=== PATIENT | male | born 1965 | race Caucasian/White ===

== ENCOUNTER 2017-06-21 09:39 | Inpatient (IN) | payer OTHER ==
[2017-06-21 10:36] VITALS: RESP 20
[2017-06-21] MEDS ORDERED: Multivitamin (MVI) 10 ML, Thiamine 100 MG, Folic Acid 1 MG in Sodium Chloride 0.9% 1,00... IV ONE (11:05)
[2017-06-21] MEDS ORDERED: Sodium Chloride 0.9% 1,000 ML ONE (11:16)
--- NOTE | 2017-06-21 11:17 | C.PDOC ---
History Of Present Illness 51 y/o male with hx of ETOH abuse presents to ED with symptoms of ETOH withdrawal. Patient reports body aches, vomiting and extremity stiffness which he states are typical symptoms of him having ETOH withdrawal. Patient states he completed a detox program 5 years ago and was sober for over 1 yr. Patient is interested in detox program and denies fever, sob, diarrhea or any other complaints at this time. Time Seen by Provider: 06/21/17 10:48 Chief Complaint (Nursing): Substance Abuse History Per: Patient History/Exam Limitations: no limitations Onset/Duration Of Symptoms: Days Current Symptoms Are (Timing): Still Present Suicide/Self Injury Attempted (Context): None Modifying Factor(s): Alcohol Past Medical History Reviewed: Historical Data, Nursing Documentation, Vital Signs Vital Signs: Last Vital Signs Temp 98.7 F 06/21/17 10:32 Pulse 96 H 06/21/17 10:32 Resp 20 06/21/17 10:32 BP 132/88 06/21/17 10:32 Pulse Ox 98 06/21/17 11:43 Family History: States: Unknown Family Hx - Social History Hx Alcohol Use: Yes Hx Substance Use: No - Immunization History Hx Tetanus Toxoid Vaccination: No Hx Influenza Vaccination: No Hx Pneumococcal Vaccination: No Review Of Systems Except As Marked, All Systems Reviewed And Found Negative. Constitutional: Negative for: Fever Gastrointestinal: Positive for: Vomiting. Negative for: Diarrhea Psych: Positive for: Withdrawal Physical Exam - Physical Exam Additional Physical Exam Comments: Constitutional: No acute distress. Tremulous Head: Normocephalic. Atraumatic. Eyes: PERRL. ENT: Moist mucous membranes. Neck: Supple. Cardiovascular: Borderline Tachycardic, Radial pulse 2+ bilaterally. Chest: No tenderness. Respiratory: Clear to auscultation bilaterally. GI: Soft. Nontender. Nondistended. Back: No CVA tenderness. Musculoskeletal: No tenderness or swelling of extremities. Skin: No rash. Neurologic: Alert, no focal deficit. ED Course And Treatment - Laboratory Results Result Diagrams: 06/21/17 11:13 06/21/17 11:13 O2 Sat by Pulse Oximetry: 98 (RA) Pulse Ox Interpretation: Normal - Radiology CXR: Interpreted by Me, Viewed By Me, Read By Radiologist CXR Interpretation: Yes: No Acute Disease Medical Decision Making Medical Decision Making: HISTORY: alcohol withdrawal COMPARISON: Chest x-ray -part of a obstructive series dated 07/18/2016 FINDINGS: LUNGS: No active pulmonary disease. Lung volumes low-normal PLEURA: No significant pleural effusion identified, no pneumothorax apparent. CARDIOVASCULAR: Normal. Pulmonary vasculature top-normal -shallow lung volumes likely contributory OSSEOUS STRUCTURES: No significant abnormalities. VISUALIZED UPPER ABDOMEN: Normal. OTHER FINDINGS: None. IMPRESSION: No active disease. Patient improved after benzos but continues to have tremor. Will benefit from further inpatient management of alcohol withdrawal and will consult Detox. Dr. Griffith accepts patient to his service. Disposition Discussed With : Kendra Griffith Doctor Will See Patient In The: Hospital - Disposition Disposition: HOSPITALIZED Disposition Time: 11:42 Condition: FAIR Forms: [facility] (Uzbek) - Clinical Impression Clinical Impression: Alcohol dependence, Alcohol withdrawal - Scribe Statement The provider has reviewed the documentation as recorded by the Michaelibanshu Lozano All medical record entries made by the Michaelibanshu were at my direction and personally dictated by me. I have reviewed the chart and agree that the record accurately reflects my personal performance of the history, physical exam, medical decision making, and the department course for this patient. I have also personally directed, reviewed, and agree with the discharge instructions and disposition.
[2017-06-21 11:27] LABS: BASO # 0.1 K/uL (0.0-0.2); BASO % 1.5 % (0.0-2.0); EOS # 0.4 K/uL (0.0-0.7); EOS % 7.7 % (0.0-4.0); HEMATOCRIT 42.7 % (35.0-51.0); LYMPH # 0.9 K/uL (1.0-4.3); LYMPH % 16.9 % (20.0-40.0); MEAN CELL VOLUME 92.5 fL (80.0-94.0); MEAN CORPUSCULAR HEMOGLOBIN 31.3 pg (27.0-31.0); MEAN CORPUSCULAR HGB CONC 33.8 g/dL (33.0-37.0); MEAN PLATELET VOLUME 8.9 fL (7.2-11.7); MONO # 0.6 K/uL (0.0-0.8); MONO % 11.4 % (0.0-10.0); NRBC % 0.1 % (0.0-2.0); RED CELL DISTRIBUTION WIDTH 13.7 % (11.5-14.5); WHITE BLOOD COUNT 5.3 K/uL (4.8-10.8)
--- NOTE | 2017-06-21 11:27 | RAD ---
HISTORY: alcohol withdrawal COMPARISON: Chest x-ray -part of a obstructive series dated 07/18/2016 FINDINGS: LUNGS: No active pulmonary disease. Lung volumes low-normal PLEURA: No significant pleural effusion identified, no pneumothorax apparent. CARDIOVASCULAR: Normal. Pulmonary vasculature top-normal -shallow lung volumes likely contributory OSSEOUS STRUCTURES: No significant abnormalities. VISUALIZED UPPER ABDOMEN: Normal. OTHER FINDINGS: None. IMPRESSION: No active disease.
[2017-06-21 11:33] LABS: CHLORIDE 95 mmol/L (98-107); POTASSIUM 3.9 mmol/L (3.6-5.2); SODIUM 136 mmol/L (132-148)
[2017-06-21 11:35] LABS: ALB/GLOB RATIO 1.2 (1.0-2.1); AST/SGOT 278 U/L (17-59); BILIRUBIN,TOTAL 3.4 mg/dL (0.2-1.3); CARBON DIOXIDE 25 mmol/L (22-30); GFR AFRICAN-AMERICAN > 60; TOTAL PROTEIN 8.2 g/dL (6.3-8.3)
[2017-06-21 11:36] LABS: ALKALINE PHOSPHATASE 82 U/L (38-126); ALT/SGPT 165 U/L (21-72); BLOOD UREA NITROGEN 9 mg/dL (9-20); CALCIUM 9.8 mg/dl (8.6-10.4); GLUCOSE,RANDOM 89 mg/dL (75-110)
[2017-06-21 11:37] LABS: ALCOHOL SERUM 41 mg/dl (0-10)
--- NOTE | 2017-06-21 16:39 | CP.PCM.HP ---
Past Patient History - Past Social History Smoking Status: CHEWS TOBA - GASTROINTESTINAL Hx Gastroesophageal Reflux: Yes - PSYCHIATRIC Hx Substance Use: No - SURGICAL HISTORY Hx Surgeries: Yes Hx Orthopedic Surgery: Yes (LEFT KNEE FX/SX W/HARDWARE) Meds Allergies/Adverse Reactions: Allergies Allergy/AdvReac Type Severity Reaction Status Date / Time No Known Allergies Allergy Verified 06/21/17 10:37 Physical Exam - Constitutional Appears: Well - Head Exam Head Exam: ATRAUMATIC, NORMAL INSPECTION, NORMOCEPHALIC - Eye Exam Eye Exam: EOMI, Normal appearance, PERRL Pupil Exam: NORMAL ACCOMODATION, PERRL - ENT Exam ENT Exam: Mucous Membranes Moist, Normal Exam - Neck Exam Neck exam: Positive for: Normal Inspection - Respiratory Exam Respiratory Exam: Decreased Breath Sounds - Cardiovascular Exam Cardiovascular Exam: REGULAR RHYTHM, +S1, +S2 - GI/Abdominal Exam GI & Abdominal Exam: Diminished Bowel Sounds, Soft - Rectal Exam Rectal Exam: Deferred Results - Vital Signs Recent Vital Signs: Last Vital Signs Temp 97.9 F 06/21/17 15:12 Pulse 115 H 06/21/17 15:12 Resp 20 06/21/17 15:12 BP 136/79 06/21/17 15:12 Pulse Ox 98 06/21/17 15:12 - Labs Result Diagrams: 06/21/17 11:13 06/21/17 11:13
[2017-06-21] MEDS ORDERED: Enoxaparin 150 mg Syringe SC ONE (16:54)
[2017-06-21] MEDS ORDERED: Enoxaparin 40 mg Syringe ONE (17:27)
[2017-06-21] MEDS: Dextrose 5%/0.45% NS 1,000 ML IV SCH (19:02)
--- NOTE | 2017-06-21 23:16 | CP.PCM.CON ---
History of Present Illness - History of Present Illness History of Present Illness: consultation for Etoh cardiomyopathy, tachycardia HPI : Mr. Mariscal is a 51-year-old male with past medical history significant for alcohol abuse. According to the patient and he has been drinking a liter of vodka for the last 35 years. He required quitting about 5-6 months ago but every time he attempted he would go into alcohol withdrawal. He attempted to quit a few weeks ago and for the last 2 months he has noticed that every time he would try to quit he would start losing his appetite he has no significant weight in the last 2 months secondary to decrease in appetite. He also has difficulty with his sleep hygiene. He therefore wanted to be admitted to the hospital for alcohol detoxification. He does have at baseline severe shortness of breath with minimal activity. He has not been worked up for his cardiomyopathy. On presentation he was tachycardic. 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 Initially drinking was only on the weekend but subsequently started drinking on a daily basis until he became a heavy alcoholic.He is trying to seek medical help to get rid of his alcohol dependence. He also would like to be evaluated for his dyspnea on exertion and easy fatigability. Review of Systems - Review of Systems All systems: reviewed and no additional remarkable complaints except - Constitutional Constitutional: As Per HPI, Fatigue, Lethargy, Malaise, Weakness - EENT Eyes: As Per HPI Ears: As Per HPI Nose/Mouth/Throat: As Per HPI - Cardiovascular Cardiovascular: As Per HPI, Dyspnea on Exertion, Lightheadedness - Respiratory Respiratory: As Per HPI. absent: Cough, Dyspnea, Hemoptysis, Dyspnea on Exertion, Wheezing, Snoring, Stridor, Pain on Inspiration, Chest Congestion, Excessive Mucous Production, Change in Mucous Color, Pain with Coughing, Other - Gastrointestinal Gastrointestinal: As Per HPI, Early Satiety, Heartburn, Nausea - Genitourinary Genitourinary: As Per HPI - Reproductive: Male Reproductive:Male: As Per HPI - Musculoskeletal Musculoskeletal: As Per HPI - Integumentary Integumentary: As Per HPI. absent: Acne, Alopecia, Bleeding Lesions, Change in Hair, Change in Nails, Change in Pigmentation, Changing Lesions, Dry Skin, Erythema, Furuncle, Hirsutism, Lesions, New Lesions, Non-Healing Lesions, Photosensitivity, Pruritus, Rash, Skin Pain, Skin Ulcer, Sores, Striae, Swelling , Unusual Bruising, Wounds, Jaundice, Other - Neurological Neurological: As Per HPI. absent: Abnormal Gait, Abnormal Hearing, Abnormal Movements, Abnormal Speech, Behavioral Changes, Burning Sensations, Confusion, Convulsions, Disequilibrium, Dizziness, Numbness, Focal Weakness, Frequent Falls , Headaches, Lack of Coordination, Loss of Vision, Memory Loss, Paresthesias, Radicular Pain, Restless Legs, Sensory Deficit, Syncope, Tingling, Tremor, Vertigo, Weakness, Other Visual Disturbances, Other - Psychiatric Psychiatric: As Per HPI, Abnormal Sleep Pattern, Hopelessness. absent: Anhedonia, Anxiety, Auditory Hallucinations, Behavioral Changes, Change in Appetite, Change in Libido, Confusion, Depression, Difficulty Concentrating, Hallucinations, Homicidal Ideation, Irritability, Memory Loss, Mood Swings, Panic Attacks, Paranoia, Suicidal Ideation, Visual Hallucinations, Tactile Hallucinations, Other - Endocrine Endocrine: As Per HPI. absent: Change in Body Appearance, Change in Libido, Cold Intolorance, Deepening of Voice, Excessive Sweating, Fatigue, Flushing, Heat Intolorance, Increase in Ring/Shoe/Hat Size, Palpitations, Polydipsia, Polyphagia, Polyuria, Other - Hematologic/Lymphatic Hematologic: As Per HPI Past Patient History - Past Medical History & Family History Pertinent Family History: +ve for HTN - Past Social History Smoking Status: CHEWS TOBA - GASTROINTESTINAL Hx Gastroesophageal Reflux: Yes - PSYCHIATRIC Hx Substance Use: No - SURGICAL HISTORY Hx Surgeries: Yes Hx Orthopedic Surgery: Yes (LEFT KNEE FX/SX W/HARDWARE) Meds Allergies/Adverse Reactions: Allergies Allergy/AdvReac Type Severity Reaction Status Date / Time No Known Allergies Allergy Verified 06/21/17 10:37 - Medications Medications: Current Medications Chlordiazepoxide (Librium) 25 mg PO QID [facility] Last Admin: 06/21/17 20:17 Dose: 25 mg Enoxaparin Sodium (Lovenox) 40 mg SC DAILY [facility] Dextrose/Sodium Chloride (Dextrose 5%/0.45% Ns 1000 Ml) 1,000 mls @ 75 mls/hr IV .[id number] [facility] Last Admin: 06/21/17 19:02 Dose: Not Given Multivitamins/Vitamin C (Multi-Delyn Liquid) 5 ml PO DAILY [facility] Pantoprazole Sodium (Protonix Ec Tab) 40 mg PO DAILY [facility] Thiamine HCl (Vitamin B1 Tab) 100 mg PO DAILY [facility] Physical Exam - Constitutional Appears: Well - Head Exam Head Exam: ATRAUMATIC, NORMAL INSPECTION, NORMOCEPHALIC - Eye Exam Eye Exam: EOMI, Normal appearance, PERRL Pupil Exam: NORMAL ACCOMODATION, PERRL - ENT Exam ENT Exam: Mucous Membranes Moist, Normal Exam - Neck Exam Neck exam: Positive for: Normal Inspection - Respiratory Exam Respiratory Exam: Clear to Auscultation Bilateral, NORMAL BREATHING PATTERN - Cardiovascular Exam Cardiovascular Exam: Tachycardia, REGULAR RHYTHM, RRR, +S1, +S2, Systolic Murmur - GI/Abdominal Exam GI & Abdominal Exam: Normal Bowel Sounds, Soft. absent: Tenderness - Extremities Exam Extremities exam: Positive for: normal inspection - Back Exam Back exam: NORMAL INSPECTION - Neurological Exam Neurological exam: Alert, CN II-XII Intact, Normal Gait, Oriented x3, Reflexes Normal - Psychiatric Exam Psychiatric exam: Normal Affect, Normal Mood - Skin Skin Exam: Dry, Intact, Normal Color, Warm Results - Vital Signs Recent Vital Signs: Last Vital Signs Temp 98.6 F 06/21/17 21:00 Pulse 96 H 06/21/17 21:00 Resp 20 06/21/17 21:00 BP 137/94 H 06/21/17 21:00 Pulse Ox 97 06/21/17 21:00 - Labs Result Diagrams: 06/21/17 11:13 06/21/17 11:13 Labs: Laboratory Results - last 24 hr 06/21/17 17:26 Total Creatine Kinase 196 H CK-MB (Mass) 1.87 Troponin I, Quant < 0.0120 Assessment & Plan (1) Tachycardia Assessment and Plan: Secondary to hyperadrenergic state from alcohol withdrawal Treat per [facility] protocol with sedatives and IV hydration Status: Acute (2) Cardiomyopathy Assessment and Plan: check echo BNP Status: Acute (3) Alcohol dependence Status: Acute (4) Alcohol withdrawal Status: Acute
[2017-06-22] MEDS: Dextrose 5%/0.45% NS 1,000 ML IV SCH ×2 (00:54→06:50)
[2017-06-22 07:10] VITALS: BP 114/83; PULSE 79; TEMP 98.6; O2SAT 97
[2017-06-22] MEDS ORDERED: Multiple Vitamins Oral Solution PO SCH (10:00)
[2017-06-22] MEDS ORDERED: Enoxaparin 40 mg Syringe SC SCH (10:00)
[2017-06-22] MEDS ORDERED: Home Med 1 UNIT (Omeprazole [Omeprazole] 40 MG) PO SCH (10:00)
[2017-06-22] MEDS ORDERED: Pantoprazole 40 mg EC Tab PO SCH (10:00)
== END 2017-06-22 15:30 | disposition left against medical advice (07) | DRG 749 ==
LOC: C.ER 09:39 → C.9E 12:53 → C.5T 19:48
PROVIDERS: ADMIT Internal Medicine Nephrology; ATTEND Internal Medicine Nephrology
DX: F10.230 Alcohol dependence with withdrawal, uncomplicated (principal); I42.6 Alcoholic cardiomyopathy; R00.0 Tachycardia, unspecified; K21.9 Gastro-esophageal reflux disease without esophagitis; F17.220 Nicotine dependence, chewing tobacco, uncomplicated

== ENCOUNTER 2017-07-09 18:51 | Emergency (ER) | payer OTHER ==
[2017-07-09 18:59] VITALS: BMI 23.4
[2017-07-09 19:02] VITALS: RESP 18; TEMP 98.2
[2017-07-09] MEDS ORDERED: Naproxen 550 mg Tab PO STA (19:27)
[2017-07-09] MEDS ORDERED: Naproxen 550 mg Tab PO ONE (19:38)
[2017-07-09 19:57] VITALS: BP 131/93; PULSE 92; O2SAT 96
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
--- NOTE | 2017-07-10 08:20 | RAD ---
PROCEDURE: Radiographs of the chest and bilateral ribs HISTORY: B/L ANTERIOR RIB PAIN COMPARISON: Frontal chest radiograph 06/21/2017. TECHNIQUE: Frontal radiograph of the chest and multiple oblique radiographs of the bilateral ribs were obtained. FINDINGS: RIGHT RIBS: No fracture or focal lesion visualized. LEFT RIBS: No fracture or focal lesion visualized. LUNGS: No acute infiltrate identified bilaterally. Inspiratory volume appears improved in the interval in fact. PLEURA: No pneumothorax or pleural fluid. CARDIOVASCULAR: Normal sized heart. No pulmonary vascular congestion. OTHER FINDINGS: None. IMPRESSION: Unremarkable radiographs of the chest and bilateral ribs. No rib fracture.
--- NOTE | 2017-07-14 18:36 | CARD ---
APPROVED REPORT EKG Measurement Heart [id number] <Conclusion> Normal sinus rhythm Left axis deviation Abnormal ECG
== END 2017-07-09 20:25 | disposition home or self-care (01) ==
LOC: C.ER 18:51
DX: S20.212A Contusion of left front wall of thorax, initial encounter (principal); S20.211A Contusion of right front wall of thorax, initial encounter; W22.8XXA Striking against or struck by other objects, initial encounter

== ENCOUNTER 2018-03-02 15:58 | Inpatient (IN) | payer OTHER ==
[2018-03-02 15:58] VITALS: BMI 23.4
[2018-03-02] MEDS ORDERED: Sodium Chloride 0.9% 1,000 ML IV STA (16:45)
[2018-03-02] MEDS ORDERED: Sodium Chloride 0.9% 1,000 ML ONE (16:55)
[2018-03-02 17:02] LABS: BASO # 0.1 K/uL (0.0-0.2); HEMOGLOBIN 14.4 g/dL (12.0-18.0); MEAN PLATELET VOLUME 8.1 fL (7.2-11.7)
[2018-03-02 17:15] LABS: EOS # 0.1 K/uL (0.0-0.7); EOS % 3.1 % (0.0-4.0); LYMPH # 0.8 K/uL (1.0-4.3); LYMPH % 17.2 % (20.0-40.0); MEAN CELL VOLUME 92.8 fL (80.0-94.0); MEAN CORPUSCULAR HEMOGLOBIN 32.2 pg (27.0-31.0); MEAN CORPUSCULAR HGB CONC 34.7 g/dL (33.0-37.0); MONO # 0.5 K/uL (0.0-0.8); MONO % 9.7 % (0.0-10.0); NEUT # 3.3 K/uL (1.8-7.0); RBC 4.47 Mil/uL (4.40-5.90); WHITE BLOOD COUNT 4.9 K/uL (4.8-10.8)
[2018-03-02 17:22] LABS: PROTHROMBIN TIME 11.4 SECONDS (9.7-12.2)
[2018-03-02 17:51] LABS: ALB/GLOB RATIO 1.2 (1.0-2.1); ALBUMIN 4.6 g/dL (3.5-5.0); ALT/SGPT 154 U/L (21-72); AST/SGOT 276 U/L (17-59); BLOOD UREA NITROGEN 12 mg/dL (9-20); CALCIUM 8.9 mg/dl (8.6-10.4); GFR AFRICAN-AMERICAN > 60; GFR NON-AFRICAN AMERICAN > 60; LIPASE 334 U/L (23-300)
[2018-03-02] MEDS ORDERED: Magnesium Sulfate 1 gm in D5W 1 GM/100 ML BAG IVPB STA (17:57)
[2018-03-02] MEDS ORDERED: Multivitamin (MVI) 10 ML, Thiamine 100 MG, Folic Acid 1 MG in Sodium Chloride 0.9% 1,00... IV ONE (18:00)
--- NOTE | 2018-03-02 18:03 | C.PDOC ---
Time Seen by Provider: 03/02/18 16:24 Chief Complaint (Nursing): Substance Abuse Past Medical History Vital Signs: Last Vital Signs Temp 98.6 F 03/02/18 16:08 Pulse 99 H 03/02/18 16:56 Resp 22 03/02/18 16:56 BP 127/86 03/02/18 16:56 Pulse Ox 96 03/02/18 16:56 Family History: States: Unknown Family Hx - Social History Hx Alcohol Use: Yes Hx Substance Use: No - Immunization History Hx Tetanus Toxoid Vaccination: No Hx Influenza Vaccination: No Hx Pneumococcal Vaccination: No ED Course And Treatment - Laboratory Results Result Diagrams: 03/02/18 16:55 03/02/18 16:55 O2 Sat by Pulse Oximetry: 96 Disposition - Disposition
--- NOTE | 2018-03-02 18:07 | C.PDOC ---
History Of Present Illness Pt is an alcoholic, but has not been able to drink any alcohol for the past two days due to vomiting. He started having "shakes" and feeling ill. Time Seen by Provider: 03/02/18 16:24 Chief Complaint (Nursing): Abdominal Pain History Per: Patient, Family Onset/Duration Of Symptoms: Days (few days) Current Symptoms Are (Timing): Still Present Context: Other (Pt is alcoholic. Last alcohol intake was 2 days ago.) Severity: Moderate Location Of Pain/Discomfort: Epigastric Quality Of Discomfort: "Pain" Associated Symptoms: Nausea, Vomiting Exacerbating Factors: Food Alleviating Factors: None Additional History Per: Prior Records Past Medical History Reviewed: Historical Data, Nursing Documentation, Vital Signs Vital Signs: Last Vital Signs Temp 98.6 F 03/02/18 16:08 Pulse 99 H 03/02/18 16:56 Resp 22 03/02/18 16:56 BP 127/86 03/02/18 16:56 Pulse Ox 96 03/02/18 16:56 - Medical History Other PMH: Alcohol abuse Surgical History: No Surg Hx Family History: States: Unknown Family Hx - Social History Hx Alcohol Use: Yes Hx Substance Use: No - Immunization History Hx Tetanus Toxoid Vaccination: No Hx Influenza Vaccination: No Hx Pneumococcal Vaccination: No Review Of Systems Except As Marked, All Systems Reviewed And Found Negative. Constitutional: Negative for: Fever Cardiovascular: Negative for: Chest Pain Respiratory: Negative for: Shortness of Breath Gastrointestinal: Positive for: Nausea, Vomiting, Abdominal Pain, Hematemesis (? ). Negative for: Diarrhea Musculoskeletal: Negative for: Neck Pain Skin: Negative for: Rash Neurological: Positive for: Other (Tremors). Negative for: Seizures Psych: Negative for: Psychosis Physical Exam - Physical Exam Appears: In Acute Distress, Other (Pt is tremulous) Skin: Normal Color, Warm, Dry Head: Atraumatic, Normacephalic Eye(s): bilateral: PERRL, EOMI Tongue: Other (Tongue fasiculations) Neck: Normal ROM, Supple Cardiovascular: Rhythm Regular (tachycardia) Respiratory: Normal Breath Sounds, No Accessory Muscle Use Gastrointestinal/Abdominal: Soft, Tenderness (mild epigastric) Extremity: Normal ROM Neurological/Psych: Oriented x3, Normal Motor, Normal Sensation, Other ( Tremulous) ED Course And Treatment - Laboratory Results Result Diagrams: 03/02/18 16:55 03/02/18 16:55 Interpretation Of Abnormal: Hypomagnesemia. Mildly elevated Lipase. ECG: Interpreted By Me, Viewed By Me ECG Rhythm: Sinus Rhythm, Nonspecific Changes Rate From EC O2 Sat by Pulse Oximetry: 96 Pulse Ox Interpretation: Normal Progress - Interventions Interventions:: Observation, Intravenous fluid - Medications Administered Intravenous: Antiemetic, Other (Ativan. PPI.) - Data Reviewed Data Reviewed: Lab, EKG, Old records - Patient Status Patient status: Partially improved - Critical Care Citical Care: Excluding Proc Time Critical Care Time: 60 minutes - Continuity of Care Discussed patient case with:: Patient, Family-HIPPA compliant, ED Nurse, Covering for PMD - Patient Plan Patient Plan: Admission, Telemetry Disposition Discussed With : Emily Cherry Comment: She accepted pt on hospitalist service. Doctor Will See Patient In The: Hospital Counseled Patient/Family Regarding: Studies Performed, Diagnosis - Disposition Disposition: HOSPITALIZED Disposition Time: 18:09 Condition: GUARDED - Clinical Impression Clinical Impression: Alcohol withdrawal, Abdominal pain, Nausea & vomiting
[2018-03-02] MEDS ORDERED: Magnesium Sulfate 1 gm in D5W 1 GM/100 ML BAG IVPB ONE (18:22)
--- NOTE | 2018-03-02 19:17 | CP.PCM.HP ---
<AnnikaRach L. - Last Filed: 03/02/18 19:46> History of Present Illness - History of Present Illness History of Present Illness: CC: nausea/ vomiting, alcohol withdrawal Patient is a 52 year old male with pmhx of alcohol abuse who presents today to the ED for nausea and vomiting and alcohol withdrawal. Patient says the nausea and vomiting started about 4 days ago and he has been vomiting about 2 times per day. He also admits that he has seen some small streaks of dark red blood in the vomit three times which he has never seen before. Patient has associated generalized abdominal pain which he rates 5/10. Patient drinks 750ml of vodka per day for the past 3 years (has been drinking for 40 years but not as heavily in the past). Because of his nausea and vomiting patient has not been able to drink alcohol for the past 48 hours and has started feeling very shaky. Patient has not taken any medication for his symptoms. Patient has been hospitalized in the past for alcohol withdrawal and denies ever having a seizure from withdrawal. Patient admits to not having a bowel movement in 4 days. Patient denies any falls. Patient denies any dark stools or blood in his stool. Patient denies any shortness of breath or chest pain. PMD: Dr. Coleman PMHx: alcohol abuse Psur years ago hardware placed in right leg due to an accident Famhx: denies Social: no cigarettes, chews 5 packets of tobacco per day for 40 years, drinks 750ml of vodka daily for 3 years with previous hx of less heavy drinking for 40 years. lives with and son, works at [employer] two days per week longest period of sobriety was 3 months 3 years ago after being in a rehab in [facility] Meds: none Present on Admission - Present on Admission Any Indicators Present on Admission: No History of DVT/PE: No History of Uncontrolled Diabetes: No Urinary Catheter: No Decubitus Ulcer Present: No Review of Systems - Constitutional Constitutional: absent: Chills, Fever - EENT Eyes: absent: Blurred Vision, Change in Vision Nose/Mouth/Throat: absent: Sore Throat - Cardiovascular Cardiovascular: absent: Chest Pain, Dyspnea, Irregular Heart Rhythm, Leg Edema, Palpitations - Respiratory Respiratory: absent: Wheezing, Chest Congestion - Gastrointestinal Gastrointestinal: Abdominal Pain, Constipation, Hematemesis, Nausea, Vomiting. absent: Coffee Ground Emesis, Diarrhea, Hematochezia, Melena - Musculoskeletal Musculoskeletal: absent: Numbness, Tingling - Integumentary Integumentary: absent: Rash - Psychiatric Psychiatric: Anxiety Past Patient History - Past Medical History & Family History Past Medical History?: No - Past Social History Smoking Status: Never Smoked - MUSCULOSKELETAL/RHEUMATOLOGICAL Hx Falls: Yes - GASTROINTESTINAL Hx Gastroesophageal Reflux: Yes - PSYCHIATRIC Hx Substance Use: No - SURGICAL HISTORY Hx Surgeries: Yes Hx Orthopedic Surgery: Yes (LEFT KNEE FX/SX W/HARDWARE) - ANESTHESIA Hx Anesthesia: Yes Hx Anesthesia Reactions: No Hx Malignant Hyperthermia: No Meds Allergies/Adverse Reactions: Allergies Allergy/AdvReac Type Severity Reaction Status Date / Time No Known Allergies Allergy Verified 07/09/17 18:58 Physical Exam - Constitutional Appears: Non-toxic, No Acute Distress, Older Than Stated Age - Head Exam Head Exam: ATRAUMATIC, NORMAL INSPECTION, NORMOCEPHALIC - Eye Exam Eye Exam: EOMI, Scleral icterus Pupil Exam: NORMAL ACCOMODATION, PERRL - ENT Exam ENT Exam: Mucous Membranes Dry - Respiratory Exam Respiratory Exam: Clear to Auscultation Bilateral, NORMAL BREATHING PATTERN. absent: Rales, Rhonchi, Wheezes, Respiratory Distress, Stridor - Cardiovascular Exam Cardiovascular Exam: Tachycardia, REGULAR RHYTHM, +S1, +S2 - GI/Abdominal Exam GI & Abdominal Exam: Normal Bowel Sounds, Organomegaly, Soft, Tenderness - Extremities Exam Extremities exam: Positive for: normal inspection. Negative for: pedal edema, tenderness - Neurological Exam Neurological exam: Alert, Oriented x3 - Psychiatric Exam Psychiatric exam: Anxious, Normal Affect - Skin Skin Exam: Intact, Normal Color, Warm Results - Vital Signs Recent Vital Signs: Last Vital Signs Temp 98.6 F 03/02/18 16:08 Pulse 90 03/02/18 19:00 Resp 20 03/02/18 19:00 BP 112/70 03/02/18 19:00 Pulse Ox 96 03/02/18 19:00 - Labs Result Diagrams: 03/02/18 16:55 03/02/18 16:55 Labs: Laboratory Results - last 24 hr 03/02/18 03/02/18 03/02/18 16:55 16:55 16:55 WBC 4.9 RBC 4.47 Hgb 14.4 Hct 41.5 MCV 92.8 MCH 32.2 H MCHC 34.7 RDW 13.0 Plt Count 98 L D MPV 8.1 Neut % (Auto) 68.0 Lymph % (Auto) 17.2 L Posey % (Auto) 9.7 Eos % (Auto) 3.1 Baso % (Auto) 2.0 Neut # (Auto) 3.3 Lymph # (Auto) 0.8 L Posey # (Auto) 0.5 Eos # (Auto) 0.1 Baso # (Auto) 0.1 Differential Comment PT 11.4 INR 1.0 APTT 33 Sodium 141 Potassium 3.8 Chloride 96 L Carbon Dioxide 26 Anion Gap 23 H BUN 12 Creatinine 0.7 L Est GFR ( Amer) > 60 Est GFR (Non-Af Amer) > 60 Random Glucose 91 Calcium 8.9 Magnesium 1.4 L Total Bilirubin 2.4 H AST 276 H ALT 154 H Alkaline Phosphatase 71 Total Protein 8.5 H Albumin 4.6 Globulin 3.9 Albumin/Globulin Ratio 1.2 Lipase 334 H Alcohol, Quantitative 27 H Assessment & Plan - Assessment and Plan (Free Text) Assessment: Alcohol Abuse/ Alcohol Withdrawal admitted to [facility], seizure/ aspiration/ fall precautions Psych consulted, Dr. Bennett, help appreciated meds: Ativan taper Ativan 1mg ivp q2h prn Banana bag at 100cc/hr Thiamine 100mg po daily Multivitamins 1 tab po daily Folic acid 1 mg po daily Zofran prn for nausea Hematemasis HgB 14.4 on admission, f/u cbc Protonix 40mg ivp q12h GI consult, Dr. Alvarez, help appreciated Transaminitis most likely 2/2 alcohol abuse continue to monitor f/u abdominal ultrasound Hypomagnesemia Mg 1.4 repleted in ED continue to monitor Prophylaxis SCDs, VTE prophylaxis contraindicated GI: Protonix 40mg ivp q12h <Emily Cherry - Last Filed: 03/03/18 17:01> Results - Vital Signs Recent Vital Signs: Last Vital Signs Temp 97.7 F 03/03/18 15:11 Pulse 114 H 03/03/18 15:11 Resp 20 03/03/18 15:11 BP 151/95 H 03/03/18 15:11 Pulse Ox 97 03/03/18 15:11 - Labs Result Diagrams: 03/03/18 04:46 03/03/18 04:46 Labs: Laboratory Results - last 24 hr 03/02/18 03/02/18 03/02/18 16:55 16:55 16:55 WBC 4.9 RBC 4.47 Hgb 14.4 Hct 41.5 MCV 92.8 MCH 32.2 H MCHC 34.7 RDW 13.0 Plt Count 98 L D MPV 8.1 Neut % (Auto) 68.0 Lymph % (Auto) 17.2 L Posey % (Auto) 9.7 Eos % (Auto) 3.1 Baso % (Auto) 2.0 Neut # (Auto) 3.3 Lymph # (Auto) 0.8 L Posey # (Auto) 0.5 Eos # (Auto) 0.1 Baso # (Auto) 0.1 Differential Comment PT 11.4 INR 1.0 APTT 33 Sodium 141 Potassium 3.8 Chloride 96 L Carbon Dioxide 26 Anion Gap 23 H BUN 12 Creatinine 0.7 L Est GFR ( Amer) > 60 Est GFR (Non-Af Amer) > 60 Random Glucose 91 Calcium 8.9 Phosphorus Magnesium 1.4 L Total Bilirubin 2.4 H AST 276 H ALT 154 H Alkaline Phosphatase 71 Total Protein 8.5 H Albumin 4.6 Globulin 3.9 Albumin/Globulin Ratio 1.2 Lipase 334 H Vitamin B12 Folate Urine Color Urine Clarity Urine pH Ur Specific [place] Urine Protein Urine Glucose (UA) Urine Ketones Urine Blood Urine Nitrate Urine Bilirubin Urine Urobilinogen Ur Leukocyte Esterase Urine WBC (Auto) Urine RBC (Auto) Ur Squamous Epith Cells Urine Opiates Screen Urine Methadone Screen Ur Barbiturates Screen Ur Phencyclidine Scrn Ur Amphetamines Screen U Benzodiazepines Scrn U Oth Cocaine Metabols U Cannabinoids Screen Alcohol, Quantitative 27 H 03/02/18 03/02/18 03/02/18 20:11 20:11 21:48 WBC RBC Hgb Hct MCV MCH MCHC RDW Plt Count MPV Neut % (Auto) Lymph % (Auto) Posey % (Auto) Eos % (Auto) Baso % (Auto) Neut # (Auto) Lymph # (Auto) Posey # (Auto) Eos # (Auto) Baso # (Auto) Differential Comment PT INR APTT Sodium Potassium Chloride Carbon Dioxide Anion Gap BUN Creatinine Est GFR ( Amer) Est GFR (Non-Af Amer) Random Glucose Calcium Phosphorus 2.6 Magnesium Total Bilirubin AST ALT Alkaline Phosphatase Total Protein Albumin Globulin Albumin/Globulin Ratio Lipase Vitamin B12 Folate Urine Color Yellow Urine Clarity Clear Urine pH 7.0 Ur Specific [place] 1.017 Urine Protein Negative Urine Glucose (UA) Normal Urine Ketones 1+ H Urine Blood Negative Urine Nitrate Negative Urine Bilirubin Negative Urine Urobilinogen 4.0 Ur Leukocyte Esterase Neg Urine WBC (Auto) 1 Urine RBC (Auto) 1 Ur Squamous Epith Cells < 1 Urine Opiates Screen Negative Urine Methadone Screen Negative Ur Barbiturates Screen Negative Ur Phencyclidine Scrn Negative Ur Amphetamines Screen Negative U Benzodiazepines Scrn Negative U Oth Cocaine Metabols Negative U Cannabinoids Screen Negative Alcohol, Quantitative 03/02/18 03/03/18 03/03/18 21:48 04:46 04:46 WBC 5.0 4.9 RBC 3.98 L 3.95 L Hgb 12.8 12.6 Hct 37.2 36.6 MCV 93.5 92.8 MCH 32.2 H 32.0 H MCHC 34.4 34.4 RDW 12.9 12.7 Plt Count 85 L 73 L MPV 8.0 8.5 Neut % (Auto) 63.1 60.7 Lymph % (Auto) 22.5 21.4 Posey % (Auto) 10.6 H 10.6 H Eos % (Auto) 2.7 5.9 H Baso % (Auto) 1.1 1.4 Neut # (Auto) 3.2 2.9 Lymph # (Auto) 1.1 1.0 Posey # (Auto) 0.5 0.5 Eos # (Auto) 0.1 0.3 Baso # (Auto) 0.1 0.1 Differential Comment PT INR APTT Sodium 138 Potassium 3.4 L Chloride 99 Carbon Dioxide 25 Anion Gap 17 BUN 11 Creatinine 0.7 L Est GFR ( Amer) > 60 Est GFR (Non-Af Amer) > 60 Random Glucose 82 Calcium 8.4 L Phosphorus 2.5 Magnesium 1.8 Total Bilirubin 2.7 H AST 190 H D ALT 108 H D Alkaline Phosphatase 57 Total Protein 7.4 Albumin 3.9 Globulin 3.5 Albumin/Globulin Ratio 1.1 Lipase Vitamin B12 350 Folate > 20.0 Urine Color Urine Clarity Urine pH Ur Specific [place] Urine Protein Urine Glucose (UA) Urine Ketones Urine Blood Urine Nitrate Urine Bilirubin Urine Urobilinogen Ur Leukocyte Esterase Urine WBC (Auto) Urine RBC (Auto) Ur Squamous Epith Cells Urine Opiates Screen Urine Methadone Screen Ur Barbiturates Screen Ur Phencyclidine Scrn Ur Amphetamines Screen U Benzodiazepines Scrn U Oth Cocaine Metabols U Cannabinoids Screen Alcohol, Quantitative Attending/Attestation - Attestation I have personally seen and examined this patient.: Yes I have fully participated in the care of the patient.: Yes I have reviewed all pertinent clinical information: Yes Notes (Text): 52years old alcoholic male came for vomiting and alcohol withdrawal. Noted fresh blood with vomits. Discussed with the resident. 1.Alcohol abuse/alcohol withdrawal 2.Hematemesis and vomting 3.transaminitis 4.Hypomagnesium Plan discussed with the resident.Follow cbc,ativan,banana bag,protonix,us abdomen I agree with the resident's documentation of the assessment and the plan
[2018-03-02 20:26] LABS: SQUAMOUS EPITHIAL < 1 /hpf (0-5); URINE BILIRUBIN NEGATIVE (NEGATIVE); URINE BLOOD NEGATIVE (NEGATIVE); URINE CLARITY Clear (Clear); URINE COLOR Yellow (YELLOW); URINE GLUCOSE (UA) NORMAL (Normal); URINE LEUKOCYTE ESTERASE NEG Leu/uL (Negative); URINE PROTEIN NEGATIVE (NEGATIVE)
[2018-03-02 20:40] LABS: BARBITURATES, UR NEGATIVE (NEGATIVE); BENZODIAZEPINES, UR NEGATIVE (NEGATIVE); OPIATES, UR NEGATIVE (NEGATIVE); PHENCYCLIDINE, UR NEGATIVE (NEGATIVE)
--- NOTE | 2018-03-02 21:40 | US ---
EXAM: US Abdomen Complete EXAM DATE/TIME: Exam ordered 03/02/2018 7:27 PM CLINICAL HISTORY: 52 years old, male; Pain; Abdominal pain; Generalized; Additional info: Alcohol abuse, abdominal pain, n/v TECHNIQUE: Real-time ultrasound of the abdomen (complete) with image documentation. COMPARISON: No relevant prior studies available. FINDINGS: Liver: The liver is generally increased in echotexture. The liver measures 16.2 cm in craniocaudal span. No intrahepatic bile duct dilation. Gallbladder: Unremarkable. No gallstones. Common bile duct: The common bile duct measures 4 mm. No stones. No dilation. Pancreas: Unremarkable as visualized. Kidneys: The right kidney measures 10.8 x 4.7 x 5 cm. The left kidney measures 11.2 x 4.7 x 5 cm. No stones. No hydronephrosis. Spleen: The spleen measures 10.5 cm in craniocaudal span. Aorta: The mid and distal abdominal aorta are not well seen due to bowel gas. Inferior vena cava: Unremarkable. Free fluid: There is normal blood flow direction in the main portal vein. IMPRESSION: 1. Echogenic liver suggesting underlying infiltrative process such as fatty infiltration or fibrosis.
[2018-03-02 21:57] LABS: BASO # 0.1 K/uL (0.0-0.2); BASO % 1.1 % (0.0-2.0); EOS # 0.1 K/uL (0.0-0.7); EOS % 2.7 % (0.0-4.0); HEMOGLOBIN 12.8 g/dL (12.0-18.0); LYMPH # 1.1 K/uL (1.0-4.3); LYMPH % 22.5 % (20.0-40.0); MEAN CELL VOLUME 93.5 fL (80.0-94.0); MEAN CORPUSCULAR HEMOGLOBIN 32.2 pg (27.0-31.0); MEAN CORPUSCULAR HGB CONC 34.4 g/dL (33.0-37.0); MONO # 0.5 K/uL (0.0-0.8); MONO % 10.6 % (0.0-10.0); NEUT # 3.2 K/uL (1.8-7.0); NEUT % 63.1 % (50.0-75.0); NRBC % 0.1 % (0.0-2.0); RBC 3.98 Mil/uL (4.40-5.90); RED CELL DISTRIBUTION WIDTH 12.9 % (11.5-14.5)
[2018-03-03 04:50] LABS: BASO # 0.1 K/uL (0.0-0.2); BASO % 1.4 % (0.0-2.0); EOS # 0.3 K/uL (0.0-0.7); EOS % 5.9 % (0.0-4.0); HEMOGLOBIN 12.6 g/dL (12.0-18.0); LYMPH % 21.4 % (20.0-40.0); MEAN CELL VOLUME 92.8 fL (80.0-94.0); MEAN CORPUSCULAR HGB CONC 34.4 g/dL (33.0-37.0); MEAN PLATELET VOLUME 8.5 fL (7.2-11.7); MONO # 0.5 K/uL (0.0-0.8); MONO % 10.6 % (0.0-10.0); NEUT # 2.9 K/uL (1.8-7.0); NEUT % 60.7 % (50.0-75.0); RBC 3.95 Mil/uL (4.40-5.90); RED CELL DISTRIBUTION WIDTH 12.7 % (11.5-14.5); WHITE BLOOD COUNT 4.9 K/uL (4.8-10.8)
[2018-03-03 05:08] LABS: ALB/GLOB RATIO 1.1 (1.0-2.1); ALBUMIN 3.9 g/dL (3.5-5.0); ALT/SGPT 108 U/L (21-72); AST/SGOT 190 U/L (17-59); BLOOD UREA NITROGEN 11 mg/dL (9-20); CALCIUM 8.4 mg/dl (8.6-10.4); GFR AFRICAN-AMERICAN > 60; GFR NON-AFRICAN AMERICAN > 60
--- NOTE | 2018-03-03 08:00 | CP.PCM.CON ---
<Casper Sky - Last Filed: 03/03/18 10:38> History of Present Illness - History of Present Illness History of Present Illness: PGY5 GI Fellow Consult Note Patient is a 52yo male with PMHx significant for EtOH abuse/dependence who presented to the hospital for abdominal pain, nausea and vomiting. 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 The patient is somewhat disoriented at this time despite translation services and thus history is limited. He states that 5-6 days ago he developed epigastric abdominal pain and loss of appetite. In the days that followed, he became nauseated and vomited multiple times. After several bouts of bilious emesis he began to notice occasional spots of bright red blood. This has since resolved however he had generalized weakness, difficulty walking, dizziness and tremulousness so he came to the ED for evaluation. Despite his symptoms, he continued drinking alcohol (~fifth of Vodka daily) up until 1-2 days prior to admission. He has been drinking for over 40 years with much more heavy intake in the last 3 years. Denies any weight loss, fever, chills. 12 system ROS performed but limited given mentation PMHx: See HPI PSHx: Left leg repair following accident, I&D abdominal wall FHx: Discussed with patient and he denies any significant family history Social: +Tobacco use (chew daily), +EtOH use (fifth of vodka daily), denies illicit drug use Endo: Denies any prior endoscopy or colonoscopy Past Patient History - Past Medical History & Family History Past Medical History?: No - Past Social History Smoking Status: Never Smoked - MUSCULOSKELETAL/RHEUMATOLOGICAL Hx Falls: Yes - GASTROINTESTINAL Hx Gastroesophageal Reflux: Yes - PSYCHIATRIC Hx Substance Use: No - SURGICAL HISTORY Hx Surgeries: Yes Hx Orthopedic Surgery: Yes (LEFT KNEE FX/SX W/HARDWARE) - ANESTHESIA Hx Anesthesia: Yes Hx Anesthesia Reactions: No Hx Malignant Hyperthermia: No Meds Allergies/Adverse Reactions: Allergies Allergy/AdvReac Type Severity Reaction Status Date / Time No Known Allergies Allergy Verified 07/09/17 18:58 - Medications Medications: Current Medications Folic Acid (Folic Acid) 1 mg PO DAILY NADIA Lorazepam (Ativan) 2 mg IVP Q4 NADIA PRN Reason: Taper Stop: 03/07/18 18:14 Last Admin: 03/03/18 04:27 Dose: Not Given Lorazepam (Ativan) 1 mg IVP Q2H PRN PRN Reason: Anxiety Last Admin: 03/03/18 03:10 Dose: 1 mg Multivitamins (Hexavitamin) 1 tab PO DAILY [facility] Ondansetron HCl (Zofran Inj) 4 mg IVP Q6H PRN PRN Reason: Nausea/Vomiting Pantoprazole Sodium (Protonix Inj) 40 mg IVP Q12H NADIA Last Admin: 03/03/18 07:00 Dose: 40 mg Thiamine HCl (Vitamin B1 Tab) 100 mg PO DAILY [facility] Physical Exam - Constitutional Appears: No Acute Distress, Confused - Eye Exam Eye Exam: EOMI, PERRL - ENT Exam ENT Exam: Mucous Membranes Dry - Respiratory Exam Respiratory Exam: Clear to Auscultation Bilateral. absent: Rales, Rhonchi, Wheezes - Cardiovascular Exam Cardiovascular Exam: RRR, +S1, +S2 - GI/Abdominal Exam GI & Abdominal Exam: Normal Bowel Sounds, Soft, Tenderness (epigastric). absent : Distended, Firm, Guarding, Organomegaly, Rigid - Extremities Exam Extremities exam: Positive for: normal inspection. Negative for: pedal edema - Neurological Exam Neurological exam: Altered Additional comments: tremulous - Psychiatric Exam Psychiatric exam: Anxious - Skin Skin Exam: Dry, Warm Results - Vital Signs Recent Vital Signs: Last Vital Signs Temp 97.8 F 03/03/18 06:35 Pulse 70 03/03/18 06:35 Resp 20 03/03/18 06:35 BP 131/88 03/03/18 06:35 Pulse Ox 96 03/03/18 06:35 - Labs Result Diagrams: 03/03/18 04:46 03/03/18 04:46 Labs: Laboratory Results - last 24 hr 03/02/18 03/02/18 03/02/18 16:55 16:55 16:55 WBC 4.9 RBC 4.47 Hgb 14.4 Hct 41.5 MCV 92.8 MCH 32.2 H MCHC 34.7 RDW 13.0 Plt Count 98 L D MPV 8.1 Neut % (Auto) 68.0 Lymph % (Auto) 17.2 L [place] % (Auto) 9.7 Eos % (Auto) 3.1 Baso % (Auto) 2.0 Neut # (Auto) 3.3 Lymph # (Auto) 0.8 L [place] # (Auto) 0.5 Eos # (Auto) 0.1 Baso # (Auto) 0.1 Differential Comment PT 11.4 INR 1.0 APTT 33 Sodium 141 Potassium 3.8 Chloride 96 L Carbon Dioxide 26 Anion Gap 23 H BUN 12 Creatinine 0.7 L Est GFR ( Amer) > 60 Est GFR (Non-Af Amer) > 60 Random Glucose 91 Calcium 8.9 Phosphorus Magnesium 1.4 L Total Bilirubin 2.4 H AST 276 H ALT 154 H Alkaline Phosphatase 71 Total Protein 8.5 H Albumin 4.6 Globulin 3.9 Albumin/Globulin Ratio 1.2 Lipase 334 H Urine Color Urine Clarity Urine pH Ur Specific [place] Urine Protein Urine Glucose (UA) Urine Ketones Urine Blood Urine Nitrate Urine Bilirubin Urine Urobilinogen Ur Leukocyte Esterase Urine WBC (Auto) Urine RBC (Auto) Ur Squamous Epith Cells Urine Opiates Screen Urine Methadone Screen Ur Barbiturates Screen Ur Phencyclidine Scrn Ur Amphetamines Screen U Benzodiazepines Scrn U Oth Cocaine Metabols U Cannabinoids Screen Alcohol, Quantitative 27 H 03/02/18 03/02/18 03/02/18 20:11 20:11 21:48 WBC RBC Hgb Hct MCV MCH MCHC RDW Plt Count MPV Neut % (Auto) Lymph % (Auto) [place] % (Auto) Eos % (Auto) Baso % (Auto) Neut # (Auto) Lymph # (Auto) [place] # (Auto) Eos # (Auto) Baso # (Auto) Differential Comment PT INR APTT Sodium Potassium Chloride Carbon Dioxide Anion Gap BUN Creatinine Est GFR ( Amer) Est GFR (Non-Af Amer) Random Glucose Calcium Phosphorus 2.6 Magnesium Total Bilirubin AST ALT Alkaline Phosphatase Total Protein Albumin Globulin Albumin/Globulin Ratio Lipase Urine Color Yellow Urine Clarity Clear Urine pH 7.0 Ur Specific [place] 1.017 Urine Protein Negative Urine Glucose (UA) Normal Urine Ketones 1+ H Urine Blood Negative Urine Nitrate Negative Urine Bilirubin Negative Urine Urobilinogen 4.0 Ur Leukocyte Esterase Neg Urine WBC (Auto) 1 Urine RBC (Auto) 1 Ur Squamous Epith Cells < 1 Urine Opiates Screen Negative Urine Methadone Screen Negative Ur Barbiturates Screen Negative Ur Phencyclidine Scrn Negative Ur Amphetamines Screen Negative U Benzodiazepines Scrn Negative U Oth Cocaine Metabols Negative U Cannabinoids Screen Negative Alcohol, Quantitative 03/02/18 03/03/18 03/03/18 21:48 04:46 04:46 WBC 5.0 4.9 RBC 3.98 L 3.95 L Hgb 12.8 12.6 Hct 37.2 36.6 MCV 93.5 92.8 MCH 32.2 H 32.0 H MCHC 34.4 34.4 RDW 12.9 12.7 Plt Count 85 L 73 L MPV 8.0 8.5 Neut % (Auto) 63.1 60.7 Lymph % (Auto) 22.5 21.4 Osborne % (Auto) 10.6 H 10.6 H Eos % (Auto) 2.7 5.9 H Baso % (Auto) 1.1 1.4 Neut # (Auto) 3.2 2.9 Lymph # (Auto) 1.1 1.0 [place] # (Auto) 0.5 0.5 Eos # (Auto) 0.1 0.3 Baso # (Auto) 0.1 0.1 Differential Comment PT INR APTT Sodium 138 Potassium 3.4 L Chloride 99 Carbon Dioxide 25 Anion Gap 17 BUN 11 Creatinine 0.7 L Est GFR ( Amer) > 60 Est GFR (Non-Af Amer) > 60 Random Glucose 82 Calcium 8.4 L Phosphorus 2.5 Magnesium 1.8 Total Bilirubin 2.7 H AST 190 H D ALT 108 H D Alkaline Phosphatase 57 Total Protein 7.4 Albumin 3.9 Globulin 3.5 Albumin/Globulin Ratio 1.1 Lipase Urine Color Urine Clarity Urine pH Ur Specific [place] Urine Protein Urine Glucose (UA) Urine Ketones Urine Blood Urine Nitrate Urine Bilirubin Urine Urobilinogen Ur Leukocyte Esterase Urine WBC (Auto) Urine RBC (Auto) Ur Squamous Epith Cells Urine Opiates Screen Urine Methadone Screen Ur Barbiturates Screen Ur Phencyclidine Scrn Ur Amphetamines Screen U Benzodiazepines Scrn U Oth Cocaine Metabols U Cannabinoids Screen Alcohol, Quantitative Assessment & Plan - Assessment and Plan (Free Text) Assessment: Patient is a 52yo male with PMHx significant for EtOH abuse/dependence who presented to the hospital for abdominal pain, nausea and vomiting. -Acute alcohol intoxication and withdrawal -Acute alcoholic hepatitis -Alcohol abuse and dependence -Nausea/vomiting likely a result of above -Thrombocytopenia Plan: -Suspect acute alcoholic hepatitis given recent intake and elevated LFTs -U/S unremarkable for biliary obstructive process -Echogenic liver which can be seen in chronic EtOH intake -MDF <32 thus no indication for corticosteroid therapy -Thrombocytopenia suggestive of portal HTN though no other overt features of cirrhosis -Encourage EtOH cessation -Check B12/folate given gait instability -Consider CT head if symptoms do not resolve with improvement in withdrawal -Diet as tolerated -No plan for endoscopic interventions at this time - Date & Time Date: 03/03/18 Time: 07:10 <Pa Benedict - Last Filed: 03/03/18 19:43> Meds - Medications Medications: Current Medications Diphenhydramine HCl (Benadryl) 50 mg PO Q6 PRN PRN Reason: Extra Pyramidal Symptoms Diphenhydramine HCl (Benadryl) 50 mg IM Q6 PRN PRN Reason: Agitation Folic Acid (Folic Acid) 1 mg PO DAILY [facility] Last Admin: 03/03/18 09:51 Dose: 1 mg Haloperidol (Haldol) 5 mg PO Q8 PRN PRN Reason: Moderate Agitation Haloperidol Lactate (Haldol) 5 mg IM Q6 PRN PRN Reason: Agitation Lorazepam (Ativan) 2 mg IVP Q4 NADIA PRN Reason: Taper Stop: 03/07/18 18:14 Last Admin: 03/03/18 16:56 Dose: Not Given Lorazepam (Ativan) 2 mg IVP Q2H PRN PRN Reason: Anxiety Last Admin: 03/03/18 17:58 Dose: 2 mg Lorazepam (Ativan) 1 mg PO Q6 PRN PRN Reason: Anxiety Lorazepam (Ativan) 1 mg IM Q6H PRN PRN Reason: Anxiety Multivitamins (Hexavitamin) 1 tab PO DAILY [facility] Last Admin: 03/03/18 09:52 Dose: 1 tab Ondansetron HCl (Zofran Inj) 4 mg IVP Q6H PRN PRN Reason: Nausea/Vomiting Pantoprazole Sodium (Protonix Inj) 40 mg IVP Q12H [facility] Last Admin: 03/03/18 07:00 Dose: 40 mg Potassium Chloride (Klor-Con 10) 10 meq PO ONCE ONE Stop: 03/04/18 12:01 Thiamine HCl (Vitamin B1 Tab) 100 mg PO DAILY [facility] Last Admin: 03/03/18 09:52 Dose: 100 mg Results - Vital Signs Recent Vital Signs: Last Vital Signs Temp 98.0 F 03/03/18 18:32 Pulse 102 H 03/03/18 18:11 Resp 20 03/03/18 15:11 BP 99/69 L 03/03/18 18:32 Pulse Ox 97 03/03/18 15:11 - Labs Result Diagrams: 03/03/18 04:46 03/03/18 04:46 Labs: Laboratory Results - last 24 hr 03/02/18 03/02/18 03/02/18 20:11 20:11 21:48 WBC RBC Hgb Hct MCV MCH MCHC RDW Plt Count MPV Neut % (Auto) Lymph % (Auto) [place] % (Auto) Eos % (Auto) Baso % (Auto) Neut # (Auto) Lymph # (Auto) [place] # (Auto) Eos # (Auto) Baso # (Auto) Sodium Potassium Chloride Carbon Dioxide Anion Gap BUN Creatinine Est GFR ( Amer) Est GFR (Non-Af Amer) Random Glucose Calcium Phosphorus 2.6 Magnesium Total Bilirubin AST ALT Alkaline Phosphatase Total Protein Albumin Globulin Albumin/Globulin Ratio Vitamin B12 Folate Urine Color Yellow Urine Clarity Clear Urine pH 7.0 Ur Specific [place] 1.017 Urine Protein Negative Urine Glucose (UA) Normal Urine Ketones 1+ H Urine Blood Negative Urine Nitrate Negative Urine Bilirubin Negative Urine Urobilinogen 4.0 Ur Leukocyte Esterase Neg Urine WBC (Auto) 1 Urine RBC (Auto) 1 Ur Squamous Epith Cells < 1 Urine Opiates Screen Negative Urine Methadone Screen Negative Ur Barbiturates Screen Negative Ur Phencyclidine Scrn Negative Ur Amphetamines Screen Negative U Benzodiazepines Scrn Negative U Oth Cocaine Metabols Negative U Cannabinoids Screen Negative 03/02/18 03/03/18 03/03/18 21:48 04:46 04:46 WBC 5.0 4.9 RBC 3.98 L 3.95 L Hgb 12.8 12.6 Hct 37.2 36.6 MCV 93.5 92.8 MCH 32.2 H 32.0 H MCHC 34.4 34.4 RDW 12.9 12.7 Plt Count 85 L 73 L MPV 8.0 8.5 Neut % (Auto) 63.1 60.7 Lymph % (Auto) 22.5 21.4 [place] % (Auto) 10.6 H 10.6 H Eos % (Auto) 2.7 5.9 H Baso % (Auto) 1.1 1.4 Neut # (Auto) 3.2 2.9 Lymph # (Auto) 1.1 1.0 [place] # (Auto) 0.5 0.5 Eos # (Auto) 0.1 0.3 Baso # (Auto) 0.1 0.1 Sodium 138 Potassium 3.4 L Chloride 99 Carbon Dioxide 25 Anion Gap 17 BUN 11 Creatinine 0.7 L Est GFR ( Amer) > 60 Est GFR (Non-Af Amer) > 60 Random Glucose 82 Calcium 8.4 L Phosphorus 2.5 Magnesium 1.8 Total Bilirubin 2.7 H AST 190 H D ALT 108 H D Alkaline Phosphatase 57 Total Protein 7.4 Albumin 3.9 Globulin 3.5 Albumin/Globulin Ratio 1.1 Vitamin B12 350 Folate > 20.0 Urine Color Urine Clarity Urine pH Ur Specific [place] Urine Protein Urine Glucose (UA) Urine Ketones Urine Blood Urine Nitrate Urine Bilirubin Urine Urobilinogen Ur Leukocyte Esterase Urine WBC (Auto) Urine RBC (Auto) Ur Squamous Epith Cells Urine Opiates Screen Urine Methadone Screen Ur Barbiturates Screen Ur Phencyclidine Scrn Ur Amphetamines Screen U Benzodiazepines Scrn U Oth Cocaine Metabols U Cannabinoids Screen Attending/Attestation - Attestation I have personally seen and examined this patient.: Yes I have fully participated in the care of the patient.: Yes I have reviewed all pertinent clinical information: Yes Notes (Text): 03/03/18 19:42 52 year old male with h/o etoh abuse admitted with intoxication/withdrawal and alcoholic hepatitis. Mild. No indication for steroids. Supportive care with IVF , MVI, thiamine and treatment for possible withdrwawal. Etoh cessation advised. Will sign off.
[2018-03-03] MEDS ORDERED: Potassium Chloride 20 mEq ER Tab PO ONE (09:45)
[2018-03-03] MEDS: Multiple Vitamins Tab PO SCH (09:52)
--- NOTE | 2018-03-03 12:55 | PCM.PSYCH ---
Initial Psychiatric Evaluation - Initial Psychiatric Evaluation Type of Admission: Voluntary Legal Status: Capacity Chief Complaint (in patient's own words): CC: "I haven't been eating" History of Present Illness and Precipitating Events: HPI: 52 year old male with PMHx of alcohol use disorder admitted for alcohol withdrawal. Psychiatry was consulted for detox and mental health assessment. Patient states he wants to be sober. He reports of drinking almost 2-3 pints of vodka daily for the past 2 months. Withdrawal symptoms including shakes, tremors, headaches, anxiety, nausea and cramps. He recently bought a new car and wants to be able to drive it. 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 He states his longest period of sobriety was for 3 months, which was 3 years ago in [facility]. He also complains of depression due to stress at home and at work. Denies sleep disturbances, hallucinations, paranoia. He states he only has suicidal thoughts when drunk and currently does not have any. 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 PMHx: None reported Current Medications: Active Medications Generic Name Dose Route Start Last Admin Trade Name Freq PRN Reason Stop Dose Admin Folic Acid 1 mg 03/03/18 10:00 03/03/18 09:51 Folic Acid PO 1 mg DAILY NADIA Administration Lorazepam 2 mg 03/02/18 18:15 03/03/18 12:35 Ativan IVP 03/07/18 18:14 2 mg Q4 NADIA Administration Taper Lorazepam 1 mg 03/02/18 18:08 03/03/18 11:38 Ativan IVP 1 mg Q2H PRN Administration Anxiety Multivitamins 1 tab 03/03/18 10:00 03/03/18 09:52 Hexavitamin PO 1 tab DAILY NADIA Administration Ondansetron HCl 4 mg 03/02/18 19:44 Zofran Inj IVP Q6H PRN Nausea/Vomiting Pantoprazole Sodium 40 mg 03/02/18 19:15 03/03/18 07:00 Protonix Inj IVP 40 mg Q12H NADIA Administration Potassium Chloride 10 meq 03/04/18 12:00 Klor-Con 10 PO 03/04/18 12:01 ONCE ONE Thiamine HCl 100 mg 03/03/18 10:00 03/03/18 09:52 Vitamin B1 Tab PO 100 mg DAILY NADIA Administration Past Psychiatric History - Past Psychiatric History Previous Treatment History: None Pertinent Medical Hx (Current Medical&Sleep Prob, Allergies): Allergies Allergy/AdvReac Type Severity Reaction Status Date / Time No Known Allergies Allergy Verified 07/09/17 18:58 Cyclobenzaprine [Cyclobenzaprine HCl] 10 mg PO BID PRN #15 tab 07/09/17 Multivitamin [Multivitamins] 07/09/17 Naproxen [Naprosyn Tab] 375 mg PO BID PRN #20 tab 07/09/17 Review of Systems - Review of Systems All systems: reviewed and no additional remarkable complaints except - Psychiatric Psychiatric: Change in Appetite, Depression. absent: Anhedonia, Hallucinations , Suicidal Ideation Mental Status Examination - Personal Presentation Personal Presentation: Looks older than stated age - Affect Affect: Depressed - Motor Activity Motor Activity: Psychomotor Agitation - Reliability in Providing Information Reliability in Providing Information: Good - Speech Speech: Organized - Mood Mood: Depressed - Formal Thought Process Formal Thought Process: No Impairment - Obsessions/Compulsions Obsessions: No Compulsions: No - Cognitive Functions Orientation: Person, Place, Situation, Time Sensorium: Alert Attention/Concentration: Attentive Abstract Thinking: [place] Estimate of Intelligence: Below average Judgement: Imparied, as evidence by: Poor judgement, Intact, as evidence by: Insight regarding need for hospitalization - Risk Risk: Withdrawal, Diminished functioning - Strength & Assets Inventory Strength & Assets Inventory: Family support, Employment status DSM 5 DX - DSM 5 DSM 5 Diagnosis: Alcohol use disorder severe Alcohol withdrawal - Recommended/Plan of Treatment Treatment Recommendations and Plan of Treatment: Alcohol use disorder severe CBT Psychoeducation Supportive therapy, individual therapy Use OK for abstinence Alcohol withdrawal uncomplicated CBT Psychoeducation Supportive therapy, individual therapy Ativan when necessary Start Ativan taper Start folic acid/thiamine/multivitamin Depressive disorder CBT Psychoeducation Supportive therapy, group therapy, individual therapy - Smoking Cessation Smoking Cessation Initiated: No
[2018-03-03 14:50] LABS: FOLATE > 20.0 ng/mL
--- NOTE | 2018-03-03 15:16 | CP.PCM.PN ---
<Rach Roblero - Last Filed: 03/03/18 17:34> Subjective - Date & Time of Evaluation Date of Evaluation: 03/03/18 Time of Evaluation: 07:00 - Subjective Subjective: PGY1- Medicine Note Patient seen and examined at bedside and in no acute distress. Patient is anxious and tremulous, but denies any nausea or vomiting since yesterday. In the early afternoon patient started getting very agitated. Patient was not responding to Ativan. Dr. Bennett was called who recommended giving Haldol 5mg and Benadryl 50mg. Patient's vital signs were stable at T: 97.7, BP: 151/95, P 110 97%02. Patient calmed down and was able to fall asleep. Objective - Vital Signs/Intake and Output Vital Signs (last 24 hours): Temp Pulse Resp BP Pulse Ox 97.7 F 114 H 20 151/95 H 97 03/03/18 15:11 03/03/18 15:11 03/03/18 15:11 03/03/18 15:11 03/03/18 15:11 - Medications Medications: Current Medications Chlordiazepoxide (Librium) 50 mg PO Q8 [facility] Last Admin: 03/03/18 13:25 Dose: 50 mg Folic Acid (Folic Acid) 1 mg PO DAILY [facility] Last Admin: 03/03/18 09:51 Dose: 1 mg Lorazepam (Ativan) 2 mg IVP Q4 [facility] PRN Reason: Taper Stop: 03/07/18 18:14 Last Admin: 03/03/18 12:35 Dose: 2 mg Lorazepam (Ativan) 2 mg IVP Q2H PRN PRN Reason: Anxiety Multivitamins (Hexavitamin) 1 tab PO DAILY [facility] Last Admin: 03/03/18 09:52 Dose: 1 tab Ondansetron HCl (Zofran Inj) 4 mg IVP Q6H PRN PRN Reason: Nausea/Vomiting Pantoprazole Sodium (Protonix Inj) 40 mg IVP Q12H [facility] Last Admin: 03/03/18 07:00 Dose: 40 mg Potassium Chloride (Klor-Con 10) 10 meq PO ONCE ONE Stop: 03/04/18 12:01 Thiamine HCl (Vitamin B1 Tab) 100 mg PO DAILY [facility] Last Admin: 03/03/18 09:52 Dose: 100 mg - Labs Labs: 03/03/18 04:46 03/03/18 04:46 PT 11.4 SECONDS (9.7-12.2) 03/02/18 16:55 INR 1.0 03/02/18 16:55 APTT 33 SECONDS (21-34) 03/02/18 16:55 - Constitutional Appears: In Acute Distress, Older Than Stated Age, Combative, Agitated, Confused - Head Exam Head Exam: ATRAUMATIC, NORMAL INSPECTION, NORMOCEPHALIC - Eye Exam Eye Exam: EOMI, Normal appearance - ENT Exam ENT Exam: Mucous Membranes Moist - Respiratory Exam Respiratory Exam: Clear to Ausculation Bilateral, NORMAL BREATHING PATTERN. absent: Rales, Rhonchi, Wheezes, Respiratory Distress, Stridor - Cardiovascular Exam Cardiovascular Exam: Tachycardia, REGULAR RHYTHM, +S1, +S2 - GI/Abdominal Exam GI & Abdominal Exam: Soft, Normal Bowel Sounds. absent: Tenderness - Extremities Exam Extremities Exam: Normal Inspection. absent: Pedal Edema - Neurological Exam Neurological Exam: Alert, Altered. absent: Oriented x3 - Psychiatric Exam Psychiatric exam: Agitated, Anxious - Skin Skin Exam: Intact, Normal Color, Warm Assessment and Plan - Assessment and Plan (Free Text) Assessment: Alcohol Abuse/ Alcohol Withdrawal admitted to tele monitor for DTs CIWA, seizure/ aspiration/ fall precautions Psych consulted, Dr. Bennett, help appreciated f/u B12/ Folate given gait instability meds: Ativan taper Ativan 1mg ivp q2h prn Banana bag at 100cc/hr Thiamine 100mg po daily Multivitamins 1 tab po daily Folic acid 1 mg po daily Zofran prn for nausea Hematemasis HgB 14.4 on admission, repeat HgB Protonix 40mg ivp q12h GI consult, Dr. Alvarez, help appreciated Transaminitis most likely 2/2 alcohol abuse continue to monitor abdominal ultrasound: echogenic liver suggesting underlying infiltrative process such as fatty infiltration or fibrosis Thrombocytopenia secondary to alcohol abuse continue to monitor Hypomagnesemia Mg 1.4 repleted in ED continue to monitor Prophylaxis SCDs, VTE prophylaxis contraindicated GI: Protonix 40mg ivp q12h <Emily Cherry - Last Filed: 03/05/18 13:14> Objective - Vital Signs/Intake and Output Vital Signs (last 24 hours): Temp Pulse Resp BP Pulse Ox 97.6 F 80 20 118/82 97 03/05/18 07:20 03/05/18 12:08 03/05/18 07:20 03/05/18 07:20 03/05/18 07:20 - Medications Medications: Current Medications Diphenhydramine HCl (Benadryl) 50 mg PO Q6 PRN PRN Reason: Extra Pyramidal Symptoms Diphenhydramine HCl (Benadryl) 50 mg IM Q6 PRN PRN Reason: Agitation Folic Acid (Folic Acid) 1 mg PO DAILY [facility] Last Admin: 03/05/18 10:21 Dose: 1 mg Haloperidol (Haldol) 5 mg PO Q8 PRN PRN Reason: Moderate Agitation Haloperidol Lactate (Haldol) 5 mg IM Q6 PRN PRN Reason: Agitation Lorazepam (Ativan) 1 mg IVP Q4 [facility] PRN Reason: Taper Stop: 03/07/18 18:14 Last Admin: 03/05/18 12:03 Dose: Not Given Lorazepam (Ativan) 2 mg IVP Q2H PRN PRN Reason: Anxiety Last Admin: 03/03/18 17:58 Dose: 2 mg Lorazepam (Ativan) 1 mg PO Q6 PRN PRN Reason: Anxiety Lorazepam (Ativan) 1 mg IM Q6H PRN PRN Reason: Anxiety Multivitamins (Hexavitamin) 1 tab PO DAILY [facility] Last Admin: 03/05/18 10:21 Dose: 1 tab Ondansetron HCl (Zofran Inj) 4 mg IVP Q6H PRN PRN Reason: Nausea/Vomiting Pantoprazole Sodium (Protonix Inj) 40 mg IVP Q12H [facility] Last Admin: 03/05/18 08:13 Dose: 40 mg Thiamine HCl (Vitamin B1 Tab) 100 mg PO DAILY [facility] Last Admin: 03/05/18 10:21 Dose: 100 mg - Labs Labs: 03/05/18 07:44 03/05/18 07:44 PT 11.4 SECONDS (9.7-12.2) 03/02/18 16:55 INR 1.0 03/02/18 16:55 APTT 33 SECONDS (21-34) 03/02/18 16:55 Attending/Attestation - Attestation I have personally seen and examined this patient.: Yes I have fully participated in the care of the patient.: Yes I have reviewed all pertinent clinical information, including history, physical exam and plan: Yes Notes (Text): Patient was seen and examined. He is agitated and in alcohol withdrawal 1Alcohol abuse/alcohol withdrawal Plan discussed with the resident.GI consult appreciated I agree with the resident's documentation of the assessment and the plan continue ativan and haldol as needed On folic acid and thiamine
[2018-03-03] MEDS ORDERED: DiphenhydrAMINE 50 mg/ml Inj IVP STA (15:17)
[2018-03-03] MEDS ORDERED: DiphenhydrAMINE 50 mg/ml Inj IM PRN (18:30)
--- NOTE | 2018-03-03 21:47 | CARD ---
APPROVED REPORT EKG Measurement Heart [id number] <Conclusion> Normal sinus rhythm Normal ECG
[2018-03-04] MEDS: Multiple Vitamins Tab PO SCH (09:48)
[2018-03-04] MEDS ORDERED: Potassium Chloride 20 mEq ER Tab PO ONE (09:50)
[2018-03-04] MEDS ORDERED: Potassium Chloride 10 mEq ER Tab PO ONE (12:00)
--- NOTE | 2018-03-04 14:49 | CP.PCM.PN ---
<RayMirifrancie E - Last Filed: 03/04/18 15:12> Subjective - Date & Time of Evaluation Date of Evaluation: 03/04/18 Time of Evaluation: 07:20 - Subjective Subjective: Medicine progress note ( Dr. Cherry's service) Patient was seen and examined at bedside. Patient was resting comfortably in bed , sleeping. As per nursing, patient had no acute issues overnight and slept through out the night. Objective - Vital Signs/Intake and Output Vital Signs (last 24 hours): Temp Pulse Resp BP Pulse Ox 97.9 F 114 H 18 113/75 99 03/04/18 09:54 03/04/18 09:54 03/04/18 09:54 03/04/18 09:54 03/04/18 09:54 - Medications Medications: Current Medications Diphenhydramine HCl (Benadryl) 50 mg PO Q6 PRN PRN Reason: Extra Pyramidal Symptoms Diphenhydramine HCl (Benadryl) 50 mg IM Q6 PRN PRN Reason: Agitation Folic Acid (Folic Acid) 1 mg PO DAILY [facility] Last Admin: 03/04/18 09:48 Dose: 1 mg Haloperidol (Haldol) 5 mg PO Q8 PRN PRN Reason: Moderate Agitation Haloperidol Lactate (Haldol) 5 mg IM Q6 PRN PRN Reason: Agitation Lorazepam (Ativan) 2 mg IVP Q4 NADIA PRN Reason: Taper Stop: 03/07/18 18:14 Last Admin: 03/04/18 13:26 Dose: 2 mg Lorazepam (Ativan) 2 mg IVP Q2H PRN PRN Reason: Anxiety Last Admin: 03/03/18 17:58 Dose: 2 mg Lorazepam (Ativan) 1 mg PO Q6 PRN PRN Reason: Anxiety Lorazepam (Ativan) 1 mg IM Q6H PRN PRN Reason: Anxiety Multivitamins (Hexavitamin) 1 tab PO DAILY [facility] Last Admin: 03/04/18 09:48 Dose: 1 tab Ondansetron HCl (Zofran Inj) 4 mg IVP Q6H PRN PRN Reason: Nausea/Vomiting Pantoprazole Sodium (Protonix Inj) 40 mg IVP Q12H [facility] Last Admin: 03/04/18 06:15 Dose: 40 mg Thiamine HCl (Vitamin B1 Tab) 100 mg PO DAILY [facility] Last Admin: 03/04/18 09:48 Dose: 100 mg - Labs Labs: 03/03/18 04:46 03/03/18 04:46 PT 11.4 SECONDS (9.7-12.2) 03/02/18 16:55 INR 1.0 03/02/18 16:55 APTT 33 SECONDS (21-34) 03/02/18 16:55 - Constitutional Appears: No Acute Distress - Head Exam Head Exam: ATRAUMATIC, NORMAL INSPECTION - Eye Exam Eye Exam: EOMI - ENT Exam ENT Exam: Mucous Membranes Moist - Respiratory Exam Respiratory Exam: NORMAL BREATHING PATTERN. absent: Prolonged Expiratory Phase , Rhonchi, Wheezes, Respiratory Distress - Cardiovascular Exam Cardiovascular Exam: REGULAR RHYTHM, +S1, +S2 - GI/Abdominal Exam GI & Abdominal Exam: Soft, Normal Bowel Sounds - Extremities Exam Extremities Exam: Normal Inspection - Neurological Exam Neurological Exam: Alert, Awake Assessment and Plan (1) Alcohol withdrawal Assessment & Plan: Psych, Dr. Bennett consulted--> Help appreciated * Management as per recommendation Management/Medications: * CIWA, seizure/ aspiration/ fall precautions * Vitamin B12 and Folate within normal limit * Ativan 2mg IVP * Ativan 2mg IV Q2H PRN * Ativan 1mg PO Q6H PRN * Ativan 1mg IM Q6H PRN * Haldol 5mg PO Q8H PRN and Haldol 5mg IM Q6H PRN (For severe agitation and aggression) * Benadryl 50mg PO Q6H PRN and Benadryl 50mg IM Q6H PRN (For severe agitation and aggression)\ * Thiamine 100mg po daily * Multivitamins 1 tab po daily * Folic acid 1 mg po daily * Zofran 4mg IV Q6H prn for nausea Status: Acute (2) Alcohol dependence Assessment & Plan: Psych, Dr. Bennett consulted--> Help appreciated * Management as per recommendation Medications: * Thiamine 100mg po daily * Multivitamins 1 tab po daily * Folic acid 1 mg po daily Status: Acute (3) Hematemesis Assessment & Plan: GI consult, Dr. Alvarez, help appreciated * HgB 14.4 on admission, repeat H/H stable * Protonix 40mg ivp q12h Status: Acute (4) Transaminitis Assessment & Plan: Downtrending Secondary to severe alcohol use continue to monitor Abdominal ultrasound: echogenic liver suggesting underlying infiltrative process such as fatty infiltration or fibrosis Status: Acute (5) Thrombocytopenia Assessment & Plan: secondary to alcohol abuse continue to monitor Status: Acute (6) Hypomagnesemia Assessment & Plan: Resolved Will continue to monitor with am labs Status: Acute (7) Prophylactic measure Assessment & Plan: SCDs, VTE prophylaxis contraindicated due to hematemesis GI: Protonix 40mg IV Q12h All plans and management discussed with Dr. Cherry Status: Acute <Emily Cherry - Last Filed: 03/05/18 13:17> Objective - Vital Signs/Intake and Output Vital Signs (last 24 hours): Temp Pulse Resp BP Pulse Ox 97.6 F 80 20 118/82 97 03/05/18 07:20 03/05/18 12:08 03/05/18 07:20 03/05/18 07:20 03/05/18 07:20 - Medications Medications: Current Medications Diphenhydramine HCl (Benadryl) 50 mg PO Q6 PRN PRN Reason: Extra Pyramidal Symptoms Diphenhydramine HCl (Benadryl) 50 mg IM Q6 PRN PRN Reason: Agitation Folic Acid (Folic Acid) 1 mg PO DAILY [facility] Last Admin: 03/05/18 10:21 Dose: 1 mg Haloperidol (Haldol) 5 mg PO Q8 PRN PRN Reason: Moderate Agitation Haloperidol Lactate (Haldol) 5 mg IM Q6 PRN PRN Reason: Agitation Lorazepam (Ativan) 1 mg IVP Q4 [facility] PRN Reason: Taper Stop: 03/07/18 18:14 Last Admin: 03/05/18 12:03 Dose: Not Given Lorazepam (Ativan) 2 mg IVP Q2H PRN PRN Reason: Anxiety Last Admin: 03/03/18 17:58 Dose: 2 mg Lorazepam (Ativan) 1 mg PO Q6 PRN PRN Reason: Anxiety Lorazepam (Ativan) 1 mg IM Q6H PRN PRN Reason: Anxiety Multivitamins (Hexavitamin) 1 tab PO DAILY [facility] Last Admin: 03/05/18 10:21 Dose: 1 tab Ondansetron HCl (Zofran Inj) 4 mg IVP Q6H PRN PRN Reason: Nausea/Vomiting Pantoprazole Sodium (Protonix Inj) 40 mg IVP Q12H [facility] Last Admin: 03/05/18 08:13 Dose: 40 mg Thiamine HCl (Vitamin B1 Tab) 100 mg PO DAILY [facility] Last Admin: 03/05/18 10:21 Dose: 100 mg - Labs Labs: 03/05/18 07:44 03/05/18 07:44 PT 11.4 SECONDS (9.7-12.2) 03/02/18 16:55 INR 1.0 03/02/18 16:55 APTT 33 SECONDS (21-34) 03/02/18 16:55 Attending/Attestation - Attestation I have personally seen and examined this patient.: Yes I have fully participated in the care of the patient.: Yes I have reviewed all pertinent clinical information, including history, physical exam and plan: Yes Notes (Text): Seen and examined by me. He is sleeping on examination patient was agitated and in withdrawal continue Ativan ,Haldol,thiamine and folic acid aspiration and seizure precaution Discussed with the resident. I agree with the recommendation of the resident's assessment and the plan
[2018-03-05 07:57] LABS: BASO # 0.1 K/uL (0.0-0.2); BASO % 1.3 % (0.0-2.0); EOS # 0.7 K/uL (0.0-0.7); EOS % 11.9 % (0.0-4.0); LYMPH # 1.2 K/uL (1.0-4.3); LYMPH % 19.7 % (20.0-40.0); MEAN CORPUSCULAR HEMOGLOBIN 32.3 pg (27.0-31.0); MEAN CORPUSCULAR HGB CONC 34.1 g/dL (33.0-37.0); MEAN PLATELET VOLUME 9.1 fL (7.2-11.7); MONO # 0.7 K/uL (0.0-0.8); MONO % 11.6 % (0.0-10.0); NEUT # 3.4 K/uL (1.8-7.0); NEUT % 55.5 % (50.0-75.0); NRBC % 0.1 % (0.0-2.0); RBC 4.59 Mil/uL (4.40-5.90); RED CELL DISTRIBUTION WIDTH 12.7 % (11.5-14.5); WHITE BLOOD COUNT 6.2 K/uL (4.8-10.8)
[2018-03-05 08:01] LABS: HEMOGLOBIN 14.8 g/dL (12.0-18.0)
[2018-03-05 08:02] LABS: MEAN CELL VOLUME 94.8 fL (80.0-94.0)
[2018-03-05 08:22] LABS: ALB/GLOB RATIO 1.1 (1.0-2.1); ALBUMIN 4.4 g/dL (3.5-5.0); ALT/SGPT 128 U/L (21-72); AST/SGOT 214 U/L (17-59); BLOOD UREA NITROGEN 12 mg/dL (9-20); CALCIUM 9.5 mg/dl (8.6-10.4); GFR AFRICAN-AMERICAN > 60; GFR NON-AFRICAN AMERICAN > 60
[2018-03-05] MEDS: Multiple Vitamins Tab PO SCH (10:21)
--- NOTE | 2018-03-05 15:18 | CP.PCM.PN ---
<RayMirifrancie Alex - Last Filed: 03/05/18 15:16> Subjective - Date & Time of Evaluation Date of Evaluation: 03/05/18 Time of Evaluation: 07:45 - Subjective Subjective: Medicine progress note ( Dr. Cherry's service) Patient was seen and examined at bedside. Patient was sitting up in bed. Patient appears to be calm, cooperative, alert and oriented today. Patient denies any complaints ror discomfort but patient is still tremulous with unsteady gait. Objective - Vital Signs/Intake and Output Vital Signs (last 24 hours): Temp Pulse Resp BP Pulse Ox 97.6 F 80 20 118/82 97 03/05/18 07:20 03/05/18 12:08 03/05/18 07:20 03/05/18 07:20 03/05/18 07:20 Intake and Output: 03/05/18 03/05/18 06:59 18:59 Intake Total 480 Balance 480 - Medications Medications: Current Medications Diphenhydramine HCl (Benadryl) 50 mg PO Q6 PRN PRN Reason: Extra Pyramidal Symptoms Diphenhydramine HCl (Benadryl) 50 mg IM Q6 PRN PRN Reason: Agitation Folic Acid (Folic Acid) 1 mg PO DAILY [facility] Last Admin: 03/05/18 10:21 Dose: 1 mg Haloperidol (Haldol) 5 mg PO Q8 PRN PRN Reason: Moderate Agitation Haloperidol Lactate (Haldol) 5 mg IM Q6 PRN PRN Reason: Agitation Lorazepam (Ativan) 1 mg IVP Q4 NADIA PRN Reason: Taper Stop: 03/07/18 18:14 Last Admin: 03/05/18 12:03 Dose: Not Given Lorazepam (Ativan) 2 mg IVP Q2H PRN PRN Reason: Anxiety Last Admin: 03/03/18 17:58 Dose: 2 mg Lorazepam (Ativan) 1 mg PO Q6 PRN PRN Reason: Anxiety Lorazepam (Ativan) 1 mg IM Q6H PRN PRN Reason: Anxiety Multivitamins (Hexavitamin) 1 tab PO DAILY [facility] Last Admin: 03/05/18 10:21 Dose: 1 tab Ondansetron HCl (Zofran Inj) 4 mg IVP Q6H PRN PRN Reason: Nausea/Vomiting Pantoprazole Sodium (Protonix Inj) 40 mg IVP Q12H [facility] Last Admin: 03/05/18 08:13 Dose: 40 mg Thiamine HCl (Vitamin B1 Tab) 100 mg PO DAILY [facility] Last Admin: 03/05/18 10:21 Dose: 100 mg - Labs Labs: 03/05/18 07:44 03/05/18 07:44 PT 11.4 SECONDS (9.7-12.2) 03/02/18 16:55 INR 1.0 03/02/18 16:55 APTT 33 SECONDS (21-34) 03/02/18 16:55 - Constitutional Appears: Well, No Acute Distress - Head Exam Head Exam: ATRAUMATIC, NORMAL INSPECTION - Eye Exam Eye Exam: EOMI, Normal appearance - ENT Exam ENT Exam: Mucous Membranes Moist - Respiratory Exam Respiratory Exam: Clear to Ausculation Bilateral, NORMAL BREATHING PATTERN. absent: Prolonged Expiratory Phase, Rhonchi, Wheezes, Respiratory Distress - Cardiovascular Exam Cardiovascular Exam: REGULAR RHYTHM, +S1, +S2. absent: Murmur - GI/Abdominal Exam GI & Abdominal Exam: Soft, Normal Bowel Sounds. absent: Distended, Firm, Guarding, Rigid, Tenderness - Extremities Exam Extremities Exam: Normal Inspection. absent: Calf Tenderness, Pedal Edema - Neurological Exam Neurological Exam: Alert, Awake, Oriented x3 Additional comments: Unsteady Gait - Psychiatric Exam Psychiatric exam: Normal Affect - Skin Skin Exam: Normal Color Assessment and Plan (1) Alcohol withdrawal Assessment & Plan: Psych, Dr. Bennett consulted--> Help appreciated * Management as per recommendation Management/Medications: * CIWA, seizure/ aspiration/ fall precautions * Vitamin B12 and Folate within normal limit * Ativan 2mg IVP * Ativan 2mg IV Q2H PRN * Ativan 1mg PO Q6H PRN * Ativan 1mg IM Q6H PRN * Haldol 5mg PO Q8H PRN and Haldol 5mg IM Q6H PRN (For severe agitation and aggression) * Benadryl 50mg PO Q6H PRN and Benadryl 50mg IM Q6H PRN (For severe agitation and aggression)\ * Thiamine 100mg po daily * Multivitamins 1 tab po daily * Folic acid 1 mg po daily * Zofran 4mg IV Q6H prn for nausea Status: Acute (2) Alcohol dependence Assessment & Plan: Psych, Dr. Bennett consulted--> Help appreciated * Management as per recommendation Medications: * Thiamine 100mg po daily * Multivitamins 1 tab po daily * Folic acid 1 mg po daily Status: Acute (3) Hematemesis Assessment & Plan: Resolved GI consult, Dr. Alvarez, help appreciated * HgB 14.4 on admission, repeat H/H stable * Protonix 40mg ivp q12h Status: Acute (4) Transaminitis Assessment & Plan: Downtrending Secondary to severe alcohol use continue to monitor Abdominal ultrasound: echogenic liver suggesting underlying infiltrative process such as fatty infiltration or fibrosis Status: Acute (5) Thrombocytopenia Assessment & Plan: Up-trending secondary to alcohol abuse continue to monitor Status: Acute (6) Hypomagnesemia Assessment & Plan: Resolved Will continue to monitor with am labs Status: Acute (7) Prophylactic measure Assessment & Plan: SCDs GI: Protonix 40mg PO daily PT and OT Regular diet All plans and management discussed with Dr. Cherry Status: Acute <Emily Cherry - Last Filed: 03/05/18 20:21> Objective - Vital Signs/Intake and Output Vital Signs (last 24 hours): Temp Pulse Resp BP Pulse Ox 97.8 F 117 H 18 118/81 97 03/05/18 19:55 03/05/18 19:55 03/05/18 19:55 03/05/18 19:55 03/05/18 19:55 Intake and Output: 03/05/18 03/06/18 18:59 06:59 Intake Total 480 Balance 480 - Medications Medications: Current Medications Diphenhydramine HCl (Benadryl) 50 mg PO Q6 PRN PRN Reason: Extra Pyramidal Symptoms Diphenhydramine HCl (Benadryl) 50 mg IM Q6 PRN PRN Reason: Agitation Folic Acid (Folic Acid) 1 mg PO DAILY [facility] Last Admin: 03/05/18 10:21 Dose: 1 mg Haloperidol (Haldol) 5 mg PO Q8 PRN PRN Reason: Moderate Agitation Haloperidol Lactate (Haldol) 5 mg IM Q6 PRN PRN Reason: Agitation Lorazepam (Ativan) 1 mg IVP Q8 [facility]IA PRN Reason: Taper Stop: 03/07/18 18:14 Last Admin: 03/05/18 16:42 Dose: 1 mg Lorazepam (Ativan) 2 mg IVP Q2H PRN PRN Reason: Anxiety Last Admin: 03/03/18 17:58 Dose: 2 mg Lorazepam (Ativan) 1 mg PO Q6 PRN PRN Reason: Anxiety Last Admin: 03/05/18 20:14 Dose: 1 mg Lorazepam (Ativan) 1 mg IM Q6H PRN PRN Reason: Anxiety Multivitamins (Hexavitamin) 1 tab PO DAILY [facility] Last Admin: 03/05/18 10:21 Dose: 1 tab Ondansetron HCl (Zofran Inj) 4 mg IVP Q6H PRN PRN Reason: Nausea/Vomiting Pantoprazole Sodium (Protonix Ec Tab) 40 mg PO DAILY [facility] Thiamine HCl (Vitamin B1 Tab) 100 mg PO DAILY [facility] Last Admin: 03/05/18 10:21 Dose: 100 mg - Labs Labs: 03/05/18 07:44 03/05/18 07:44 PT 11.4 SECONDS (9.7-12.2) 03/02/18 16:55 INR 1.0 03/02/18 16:55 APTT 33 SECONDS (21-34) 03/02/18 16:55 Attending/Attestation - Attestation I have personally seen and examined this patient.: Yes I have fully participated in the care of the patient.: Yes I have reviewed all pertinent clinical information, including history, physical exam and plan: Yes Notes (Text): Patient is less agitated today. Unsteady with tremor continue Ativan PRN ,Haldol PRN,thiamine and folic acid PT evaluation I agree with the recommendation of the resident's assessment and the plan
[2018-03-06 06:54] LABS: BASO # 0.1 K/uL (0.0-0.2); BASO % 1.9 % (0.0-2.0); EOS # 0.7 K/uL (0.0-0.7); EOS % 11.9 % (0.0-4.0); HEMOGLOBIN 15.1 g/dL (12.0-18.0); LYMPH # 1.3 K/uL (1.0-4.3); LYMPH % 21.3 % (20.0-40.0); MEAN CELL VOLUME 93.8 fL (80.0-94.0); MEAN CORPUSCULAR HEMOGLOBIN 32.5 pg (27.0-31.0); MEAN CORPUSCULAR HGB CONC 34.6 g/dL (33.0-37.0); MEAN PLATELET VOLUME 9.1 fL (7.2-11.7); MONO # 0.7 K/uL (0.0-0.8); NEUT # 3.2 K/uL (1.8-7.0); NEUT % 52.9 % (50.0-75.0); NRBC % 0.1 % (0.0-2.0); RBC 4.66 Mil/uL (4.40-5.90)
[2018-03-06 07:11] LABS: ALB/GLOB RATIO 1.1 (1.0-2.1); ALBUMIN 4.4 g/dL (3.5-5.0); ALT/SGPT 171 U/L (21-72); AST/SGOT 221 U/L (17-59); BLOOD UREA NITROGEN 7 mg/dL (9-20); CALCIUM 9.8 mg/dl (8.6-10.4); GFR AFRICAN-AMERICAN > 60; GFR NON-AFRICAN AMERICAN > 60
[2018-03-06] MEDS ORDERED: Potassium Chloride 20 mEq ER Tab PO ONE (09:16)
[2018-03-06] MEDS: Multiple Vitamins Tab PO SCH (09:30)
[2018-03-06] MEDS: Pantoprazole 40 mg EC Tab PO SCH (09:30)
--- NOTE | 2018-03-06 14:31 | PCM.PYCHPN ---
Psychiatric Progress Note - Psychiatric Progress Note Patient seen today, length of contact: 15 min Patient Chief Complaint: CC: "I am still having withdrawal symptoms Problems Identified/Issues Discussed: Patient seen and evaluated, chart reviewed and discussed with the nurse. The patient reports improvement in his mood but still reports withdrawal symptoms including shakes, anxiety, headaches and sweating. As per the nurse yesterday he was reporting feelings of hopelessness or helplessness. But today he is hopeful and denies any suicidal ideation or homicidal ideation. He is taking medications and denies any side effects. Supportive therapy and psychoeducation were given. Medication Change: Yes (Start trazodone, start Zoloft) Medical Record Reviewed: Yes Mental Status Examination - Cognitive Function Orientation: Person, Place, Situation, Time Memory: Intact Attention: WNL Concentration: Poor Association: WNL Fund of Knowledge: Poor - Mood Mood: Depressed, Anxious - Affect Affect: Constricted, Depressed - Speech Speech: Soft - Formal Thought Process Formal Thought Process: No Impairment - Suicidal Ideation Suicidal Ideation: No - Homicidal Ideation Homicidal Ideation: No Goal/Treatment Plan - Goal/Treatment Plan Need for Continued Stay: Severe depression anxiety, Severe functional impairment Progress Toward Problem(s) and Goals/Treatment Plan: Alcohol use disorder severe CBT Psychoeducation Supportive therapy, individual therapy Use [facility] for abstinence Alcohol withdrawal uncomplicated CBT Psychoeducation Supportive therapy, individual therapy Ativan when necessary Ativan taper Folic acid/thiamine/multivitamin Depressive disorder CBT Psychoeducation Supportive therapy, group therapy, individual therapy Zoloft 50 mg daily Trazodone 50 mg by mouth daily at bedtime - Smoking Cessation Smoking Cessation Initiated: No
--- NOTE | 2018-03-06 17:26 | CP.PCM.PN ---
Subjective - Date & Time of Evaluation Date of Evaluation: 03/06/18 Time of Evaluation: 07:00 - Subjective Subjective: Medicine progress note Patient was seen and examined at bedside. Patient was sitting up in bed. Patient appears to be calm, cooperative, alert and oriented today. Patient denies any complaints or discomfort but patient is still tremulous with unsteady gait. Objective - Vital Signs/Intake and Output Vital Signs (last 24 hours): Temp Pulse Resp BP Pulse Ox 98.1 F 105 H 20 118/82 97 03/06/18 15:00 03/06/18 15:00 03/06/18 15:00 03/06/18 15:00 03/06/18 15:00 - Medications Medications: Current Medications Diphenhydramine HCl (Benadryl) 50 mg PO Q6 PRN PRN Reason: Extra Pyramidal Symptoms Diphenhydramine HCl (Benadryl) 50 mg IM Q6 PRN PRN Reason: Agitation Folic Acid (Folic Acid) 1 mg PO DAILY [facility] Last Admin: 03/06/18 09:30 Dose: 1 mg Haloperidol (Haldol) 5 mg PO Q8 PRN PRN Reason: Moderate Agitation Haloperidol Lactate (Haldol) 5 mg IM Q6 PRN PRN Reason: Agitation Lorazepam (Ativan) 1 mg IVP Q8 [facility] PRN Reason: Taper Stop: 03/07/18 18:14 Last Admin: 03/06/18 15:03 Dose: Not Given Lorazepam (Ativan) 2 mg IVP Q2H PRN PRN Reason: Anxiety Last Admin: 03/03/18 17:58 Dose: 2 mg Lorazepam (Ativan) 1 mg PO Q6 PRN PRN Reason: Anxiety Last Admin: 03/05/18 20:14 Dose: 1 mg Lorazepam (Ativan) 1 mg IM Q6H PRN PRN Reason: Anxiety Multivitamins (Hexavitamin) 1 tab PO DAILY [facility] Last Admin: 03/06/18 09:30 Dose: 1 tab Ondansetron HCl (Zofran Inj) 4 mg IVP Q6H PRN PRN Reason: Nausea/Vomiting Pantoprazole Sodium (Protonix Ec Tab) 40 mg PO DAILY [facility] Last Admin: 03/06/18 09:30 Dose: 40 mg Sertraline HCl (Zoloft) 50 mg PO DAILY [facility] Thiamine HCl (Vitamin B1 Tab) 100 mg PO BID NADIA Trazodone HCl (Desyrel) 50 mg PO HS NADIA - Labs Labs: 03/06/18 06:45 03/06/18 06:45 PT 11.4 SECONDS (9.7-12.2) 03/02/18 16:55 INR 1.0 03/02/18 16:55 APTT 33 SECONDS (21-34) 03/02/18 16:55 - Additional Findings Additional findings: - Constitutional Appears: Well, No Acute Distress - Head Exam Head Exam: ATRAUMATIC, NORMAL INSPECTION - Eye Exam Eye Exam: EOMI, Normal appearance - ENT Exam ENT Exam: Mucous Membranes Moist - Respiratory Exam Respiratory Exam: Clear to Ausculation Bilateral, NORMAL BREATHING PATTERN. absent: Prolonged Expiratory Phase, Rhonchi, Wheezes, Respiratory Distress - Cardiovascular Exam Cardiovascular Exam: REGULAR RHYTHM, +S1, +S2. absent: Murmur - GI/Abdominal Exam GI & Abdominal Exam: Soft, Normal Bowel Sounds. absent: Distended, Firm, Guarding, Rigid, Tenderness - Extremities Exam Extremities Exam: Normal Inspection. absent: Calf Tenderness, Pedal Edema - Neurological Exam Neurological Exam: Alert, Awake, Oriented x3 Additional comments: Unsteady Gait - Psychiatric Exam Psychiatric exam: Normal Affect - Skin Skin Exam: Normal Color Assessment and Plan - Assessment and Plan (Free Text) Assessment: Alcohol withdrawal Assessment & Plan: Psych, Dr. Bennett consulted--> Help appreciated * Management as per recommendation Management/Medications: * CIWA, seizure/ aspiration/ fall precautions * Vitamin B12 and Folate within normal limit * Ativan 2mg IVP * Ativan 2mg IV Q2H PRN * Ativan 1mg PO Q6H PRN * Ativan 1mg IM Q6H PRN * Haldol 5mg PO Q8H PRN and Haldol 5mg IM Q6H PRN (For severe agitation and aggression) * Benadryl 50mg PO Q6H PRN and Benadryl 50mg IM Q6H PRN (For severe agitation and aggression)\ * Thiamine 100mg po BID * Multivitamins 1 tab po daily * Folic acid 1 mg po daily * Zofran 4mg IV Q6H prn for nausea Status: Acute Alcohol dependence Assessment & Plan: PsychDr. Bennett consulted--> Help appreciated * Management as per recommendation Medications: * Thiamine 100mg po daily * Multivitamins 1 tab po daily * Folic acid 1 mg po daily Status: Chronic Depression Assessment & Plan: Trazodone 50mg po HS Zoloft 50mg po daily Status: Chronic Hematemesis Assessment & Plan: Resolved GI consult, Dr. Alvarez, help appreciated * HgB 14.4 on admission, repeat H/H stable * Protonix 40mg ivp q12h Status: Acute Transaminitis Assessment & Plan: Secondary to severe alcohol use continue to monitor Abdominal ultrasound: echogenic liver suggesting underlying infiltrative process such as fatty infiltration or fibrosis Status: Acute Thrombocytopenia Assessment & Plan: Up-trending secondary to alcohol abuse continue to monitor Status: Acute Electrolyte abnormalities Assessment & Plan: Hypokalemia, repleted continue to monitor Status: Acute Prophylactic measure Assessment & Plan: SCDs GI: Protonix 40mg PO daily PT and OT Regular diet
[2018-03-07 00:46] VITALS: RESP 20
[2018-03-07 07:06] LABS: BASO # 0.1 K/uL (0.0-0.2); BASO % 1.7 % (0.0-2.0); EOS # 0.8 K/uL (0.0-0.7); EOS % 12.4 % (0.0-4.0); HEMOGLOBIN 14.9 g/dL (12.0-18.0); LYMPH # 1.6 K/uL (1.0-4.3); LYMPH % 24.6 % (20.0-40.0); MEAN CELL VOLUME 93.7 fL (80.0-94.0); MEAN CORPUSCULAR HEMOGLOBIN 32.4 pg (27.0-31.0); MEAN CORPUSCULAR HGB CONC 34.6 g/dL (33.0-37.0); MEAN PLATELET VOLUME 8.3 fL (7.2-11.7); MONO % 14.9 % (0.0-10.0); NEUT % 46.4 % (50.0-75.0); NRBC % 0.1 % (0.0-2.0); RBC 4.59 Mil/uL (4.40-5.90); RED CELL DISTRIBUTION WIDTH 12.7 % (11.5-14.5); WHITE BLOOD COUNT 6.4 K/uL (4.8-10.8)
[2018-03-07 07:44] LABS: ALBUMIN 4.2 g/dL (3.5-5.0); ALT/SGPT 228 U/L (21-72); AST/SGOT 232 U/L (17-59); BLOOD UREA NITROGEN 8 mg/dL (9-20); CALCIUM 9.4 mg/dl (8.6-10.4); GFR AFRICAN-AMERICAN > 60; GFR NON-AFRICAN AMERICAN > 60
[2018-03-07 07:59] VITALS: BP 98/65; PULSE 96; TEMP 97.5; O2SAT 96
[2018-03-07] MEDS: Multiple Vitamins Tab PO SCH (09:36)
[2018-03-07] MEDS: Pantoprazole 40 mg EC Tab PO SCH (09:36)
[2018-03-07] MEDS ORDERED: Potassium Chloride 20 mEq ER Tab PO ONE (10:30)
[2018-03-07] MEDS ORDERED: Lactated Ringer's 1,000 ML IV SCH (11:15)
--- NOTE | 2018-03-07 15:52 | CP.PCM.DIS ---
Provider - Provider Date of Admission: 03/02/18 18:06 Attending physician: Emily Cherry MD Primary care physician: Dr. Coleman Consults: Dr. Bennett (psych) Time Spent in preparation of Discharge (in minutes): 45 Diagnosis - Discharge Diagnosis (1) Alcohol dependence Status: Chronic (2) Alcohol withdrawal Status: Resolved (3) Hematemesis Status: Resolved (4) Nausea & vomiting Status: Resolved (5) Transaminitis Status: Acute Hospital Course - Lab Results Lab Results: Most Recent Lab Values WBC 6.4 K/uL (4.8-10.8) 03/07/18 06:53 RBC 4.59 Mil/uL (4.40-5.90) 03/07/18 06:53 Hgb 14.9 g/dL (12.0-18.0) 03/07/18 06:53 Hct 43.0 % (35.0-51.0) 03/07/18 06:53 MCV 93.7 fL (80.0-94.0) 03/07/18 06:53 MCH 32.4 pg (27.0-31.0) H 03/07/18 06:53 MCHC 34.6 g/dL (33.0-37.0) 03/07/18 06:53 RDW 12.7 % (11.5-14.5) 03/07/18 06:53 Plt Count 182 K/uL (130-400) 03/07/18 06:53 MPV 8.3 fL (7.2-11.7) 03/07/18 06:53 Neut % (Auto) 46.4 % (50.0-75.0) L 03/07/18 06:53 Lymph % (Auto) 24.6 % (20.0-40.0) 03/07/18 06:53 Florence % (Auto) 14.9 % (0.0-10.0) H 03/07/18 06:53 Eos % (Auto) 12.4 % (0.0-4.0) H 03/07/18 06:53 Baso % (Auto) 1.7 % (0.0-2.0) 03/07/18 06:53 Neut # (Auto) 3.0 K/uL (1.8-7.0) 03/07/18 06:53 Lymph # (Auto) 1.6 K/uL (1.0-4.3) 03/07/18 06:53 Florence # (Auto) 1.0 K/uL (0.0-0.8) H 03/07/18 06:53 Eos # (Auto) 0.8 K/uL (0.0-0.7) H 03/07/18 06:53 Baso # (Auto) 0.1 K/uL (0.0-0.2) 03/07/18 06:53 Differential Comment 03/02/18 16:55 PT 11.4 SECONDS (9.7-12.2) 03/02/18 16:55 INR 1.0 03/02/18 16:55 APTT 33 SECONDS (21-34) 03/02/18 16:55 Sodium 141 mmol/L (132-148) 03/07/18 06:53 Potassium 3.5 mmol/L (3.6-5.2) L 03/07/18 06:53 Chloride 102 mmol/L (98-107) 03/07/18 06:53 Carbon Dioxide 23 mmol/L (22-30) 03/07/18 06:53 Anion Gap 20 (10-20) 03/07/18 06:53 BUN 8 mg/dL (9-20) L 03/07/18 06:53 Creatinine 0.7 mg/dL (0.8-1.5) L 03/07/18 06:53 Est GFR ( Amer) > 60 03/07/18 06:53 Est GFR (Non-Af Amer) > 60 03/07/18 06:53 Random Glucose 101 mg/dL (75-110) 03/07/18 06:53 Calcium 9.4 mg/dl (8.6-10.4) 03/07/18 06:53 Phosphorus 5.0 mg/dL (2.5-4.5) H 03/07/18 06:53 Magnesium 1.9 mg/dL (1.6-2.3) 03/07/18 06:53 Total Bilirubin 1.8 mg/dL (0.2-1.3) H 03/07/18 06:53 AST 232 U/L (17-59) H 03/07/18 06:53 ALT 228 U/L (21-72) H D 03/07/18 06:53 Alkaline Phosphatase 68 U/L (38-126) 03/07/18 06:53 Total Protein 8.3 g/dL (6.3-8.3) 03/07/18 06:53 Albumin 4.2 g/dL (3.5-5.0) 03/07/18 06:53 Globulin 4.0 gm/dL (2.2-3.9) H 03/07/18 06:53 Albumin/Globulin Ratio 1.0 (1.0-2.1) 03/07/18 06:53 Lipase 334 U/L (23-300) H 03/02/18 16:55 Vitamin B12 350 pg/mL (239-931) 03/03/18 04:46 Folate > 20.0 ng/mL 03/03/18 04:46 Urine Color Yellow (YELLOW) 03/02/18 20:11 Urine Clarity Clear (Clear) 03/02/18 20:11 Urine pH 7.0 (5.0-8.0) 03/02/18 20:11 Ur Specific [place] 1.017 (1.003-1.030) 03/02/18 20:11 Urine Protein Negative mg/dL (NEGATIVE) 03/02/18 20:11 Urine Glucose (UA) Normal mg/dL (Normal) 03/02/18 20:11 Urine Ketones 1+ mg/dL (NEGATIVE) H 03/02/18 20:11 Urine Blood Negative (NEGATIVE) 03/02/18 20:11 Urine Nitrate Negative (NEGATIVE) 03/02/18 20:11 Urine Bilirubin Negative (NEGATIVE) 03/02/18 20:11 Urine Urobilinogen 4.0 mg/dL (0.2-1.0) 03/02/18 20:11 Ur Leukocyte Esterase Neg Bob/uL (Negative) 03/02/18 20:11 Urine WBC (Auto) 1 /hpf (0-5) 03/02/18 20:11 Urine RBC (Auto) 1 /hpf (0-3) 03/02/18 20:11 Ur Squamous Epith Cells < 1 /hpf (0-5) 03/02/18 20:11 Urine Opiates Screen Negative (NEGATIVE) 03/02/18 20:11 Urine Methadone Screen Negative (NEGATIVE) 03/02/18 20:11 Ur Barbiturates Screen Negative (NEGATIVE) 03/02/18 20:11 Ur Phencyclidine Scrn Negative (NEGATIVE) 03/02/18 20:11 Ur Amphetamines Screen Negative (NEGATIVE) 03/02/18 20:11 U Benzodiazepines Scrn Negative (NEGATIVE) 03/02/18 20:11 U Oth Cocaine Metabols Negative (NEGATIVE) 03/02/18 20:11 U Cannabinoids Screen Negative (NEGATIVE) 03/02/18 20:11 Alcohol, Quantitative 27 mg/dl (0-10) H 03/02/18 16:55 - Hospital Course Hospital Course: HPI: "Patient is a 52 year old male with pmhx of alcohol abuse who presents today to the ED for nausea and vomiting and alcohol withdrawal. Patient says the nausea and vomiting started about 4 days ago and he has been vomiting about 2 times per day. He also admits that he has seen some small streaks of dark red blood in the vomit three times which he has never seen before. Patient has associated generalized abdominal pain which he rates 5/10. Patient drinks 750ml of vodka per day for the past 3 years (has been drinking for 40 years but not as heavily in the past). Because of his nausea and vomiting patient has not been able to drink alcohol for the past 48 hours and has started feeling very shaky. Patient has not taken any medication for his symptoms. Patient has been hospitalized in the past for alcohol withdrawal and denies ever having a seizure from withdrawal. Patient admits to not having a bowel movement in 4 days. Patient denies any falls. Patient denies any dark stools or blood in his stool. Patient denies any shortness of breath or chest pain." Patient admitted for alcohol abuse/ alcohol withdrawal. Patient's liver enzymes were elevated and abdominal ultrasound done which showed echogenic liver suggesting underlying infiltrative process such as fatty infiltration or fibrosis. Patient's hemoglobin was stable. Patient was placed on medications for withdrawal including Ativan, Haldol 5mg PO Q8H PRN and Haldol 5mg IM Q6H PRN (for severe agitation and aggression), Benadryl 50mg PO Q6H PRN and Benadryl 50mg IM Q6H PRN (For severe agitation and aggression), Thiamine 100mg po daily, Multivitamins 1 tab po daily, Folic acid 1 mg po daily , Zofran 4mg IV Q6H prn for nausea. CIWA, seizure, aspiration, and fall precautions were put in place. Dr. Bennett was consulted who also added Zoloft and Trazodone for depression. Patient counseled on the importance of alcohol cessation. Patient explained importance of following up as outpatient. Upon discharge patient was no longer tremulous or having any withdrawal symptoms. This is a summary of the patient's hospital course. Please see chart for details. Discharge Exam - Additional Findings Additional findings: - Constitutional Appears: Non-toxic, No Acute Distress, Older Than Stated Age - Head Exam Head Exam: ATRAUMATIC, NORMAL INSPECTION, NORMOCEPHALIC - Eye Exam Eye Exam: EOMI, Scleral icterus Pupil Exam: NORMAL ACCOMODATION, PERRL - ENT Exam ENT Exam: Mucous Membranes Dry - Respiratory Exam Respiratory Exam: Clear to Auscultation Bilateral, NORMAL BREATHING PATTERN. absent: Rales, Rhonchi, Wheezes, Respiratory Distress, Stridor - Cardiovascular Exam Cardiovascular Exam: Tachycardia, REGULAR RHYTHM, +S1, +S2 - GI/Abdominal Exam GI & Abdominal Exam: Normal Bowel Sounds, Organomegaly, Soft, Tenderness - Extremities Exam Extremities exam: Positive for: normal inspection. Negative for: pedal edema, tenderness - Neurological Exam Neurological exam: Alert, Oriented x3 - Psychiatric Exam Psychiatric exam: Anxious, Normal Affect - Skin Skin Exam: Intact, Normal Color, Warm Discharge Plan - Discharge Medications Prescriptions: Naltrexone [Revia] 50 mg PO DAILY #30 tab Sertraline [Zoloft] 50 mg PO DAILY #30 tab Thiamine [Vitamin B1 Tab] 100 mg PO DAILY #30 tab traZODone [Desyrel] 50 mg PO HS #30 tab - Follow Up Plan Condition: GUARDED Disposition: HOME/ ROUTINE Instructions: Gastrointestinal Bleeding (DC), Alcohol Withdrawal, Alcohol Abuse and Alcoholism (DC), Bleeding Precautions, Naltrexone, Sertraline, Thiamine, Trazodone, Low Magnesium Level (DC) Additional Instructions: Patient stable for discharge as per Dr. Bennett and Dr. Dennis. Patient to please call to make an appointment to follow up in Clinic ([facility] [place]) within 2 weeks. Patient to follow up with the [facility]. Patient to go home with walker. Patient explained importance of not drinking any alcohol and following with Alcoholics Anonymous. Patient to take the following: Zoloft 50mg po daily Thiamine 100mg po daily Trazodone 50mg po at night. Naltrexone 50mg po daily. Patient to please return to Emergency Room if symptoms return. [facility]: [facility] [Provider [facility]] [facility] [Provider Group] [facility] [Outside]
== END 2018-03-07 15:12 | disposition home or self-care (01) | DRG 750 ==
LOC: C.ER 15:58 → C.9E 18:06 → C.9I 03-03 01:14 → C.5S 03-03 07:20
PROVIDERS: ADMIT Internal Medicine; ATTEND Internal Medicine
PROC: HZ2ZZZZ Detoxification Services for Substance Abuse Treatment (ICD-10-PCS; principal; 2018-03-02)
PROC: GZHZZZZ Group Psychotherapy (ICD-10-PCS; 2018-03-02)
DX: F10.230 Alcohol dependence with withdrawal, uncomplicated (principal); D69.6 Thrombocytopenia, unspecified; K92.0 Hematemesis; F10.220 Alcohol dependence with intoxication, uncomplicated; Y90.1 Blood alcohol level of 20-39 mg/100 ml; E83.42 Hypomagnesemia; F32.9 Major depressive disorder, single episode, unspecified; F41.9 Anxiety disorder, unspecified

== ENCOUNTER 2018-05-23 14:47 | Emergency (ER) | payer OTHER ==
[2018-05-23 14:47] VITALS: BMI 23.4
[2018-05-23 14:54] VITALS: RESP 16
[2018-05-23] MEDS ORDERED: Sodium Chloride 0.9% 1,000 ML IV ONE (15:13)
--- NOTE | 2018-05-23 15:18 | C.PDOC ---
History Of Present Illness 52 year old male, whose PMHx includes alcohol abuse, presents to the ED for evaluation of nausea, vomiting and epigastric abdominal pain which began 3 days ago. Patient admits to drinking beer and states his last drink was last night. Review of prior records shows patient recently underwent an ultrasound, which showed no gallbladder pathology. Patient denies fever, chills. Time Seen by Provider: 05/23/18 15:10 Chief Complaint (Nursing): Abdominal Pain History Per: Patient History/Exam Limitations: no limitations Onset/Duration Of Symptoms: Days (3) Current Symptoms Are (Timing): Still Present Location Of Pain/Discomfort: Epigastric Quality Of Discomfort: "Pain" Associated Symptoms: Nausea, Vomiting. denies: Fever, Chills Additional History Per: Patient Past Medical History Reviewed: Historical Data, Nursing Documentation, Vital Signs Vital Signs: Last Vital Signs Temp 98.4 F 05/23/18 16:39 Pulse 88 05/23/18 16:39 Resp 16 05/23/18 16:39 BP 124/88 05/23/18 16:39 Pulse Ox 99 05/23/18 16:39 - Medical History PMH: No Chronic Diseases Denies: Chronic Kidney Disease Surgical History: No Surg Hx - [facility] DETOXIFICATION SERVICES FOR SUBSTANCE ABUSE TREATMENT (03/02/18) GROUP PSYCHOTHERAPY (03/02/18) Family History: States: Unknown Family Hx - Social History Hx Alcohol Use: Yes Hx Substance Use: No - Immunization History Hx Tetanus Toxoid Vaccination: No Hx Influenza Vaccination: No Hx Pneumococcal Vaccination: No Review Of Systems Constitutional: Negative for: Fever, Chills Gastrointestinal: Positive for: Nausea, Vomiting, Abdominal Pain (epigastric ) Physical Exam - Physical Exam Appears: Non-toxic, No Acute Distress Skin: Normal Color, Warm, Dry Head: Atraumatic, Normacephalic Eye(s): bilateral: Normal Inspection Oral Mucosa: Moist Chest: Symmetrical, No Deformity, No Tenderness Cardiovascular: Rhythm Regular, No Murmur Respiratory: Normal Breath Sounds, No Rales, No Rhonchi, No Wheezing Gastrointestinal/Abdominal: Soft, Tenderness (epigastric ), No Guarding, No Rebound Extremity: Normal ROM, Capillary Refill (less than 2 seconds ) Neurological/Psych: Oriented x3, Normal Speech, Normal Cognition ED Course And Treatment - Laboratory Results Result Diagrams: 05/23/18 15:54 05/23/18 15:54 O2 Sat by Pulse Oximetry: 97 (on RA) Pulse Ox Interpretation: Normal Medical Decision Making Medical Decision Making: Impression: 52 year old male with epigastric abdominal pain, nausea, vomiting Progress: Bloodwork and urinalysis ordered and reviewed. Zofran IVP and IV Fluids given. pt reassesed abd soft no ttp no lower ttp. no wbc count, recent neg us. pt states feels well for dc does not wish to wait for er. no tremors tachycardia e/ o of w/d. lfts baseline 2/2 etoh abuse. Disposition - Disposition Referrals: [facility] [Outside] [facility] [Outside] Benoit Escalera MD [Staff Provider] - Disposition: HOME/ ROUTINE Disposition Time: 04:00 Condition: GOOD Additional Instructions: please follow up with your doctor/clinic. return to er with worsening symptoms or concerns. please see specialist. you may need further diagnostic w/u as an outpatient. Instructions: Acute Abdomen (Belly Pain) Forms: [facility] (Frisian) - Clinical Impression Clinical Impression: Abdominal pain - Scribe Statement The provider has reviewed the documentation as recorded by the Scribe (Delmis Griffith) Provider Attestation: All medical record entries made by the Scribe were at my direction and personally dictated by me. I have reviewed the chart and agree that the record accurately reflects my personal performance of the history, physical exam, medical decision making, and the department course for this patient. I have also personally directed, reviewed, and agree with the discharge instructions and disposition.
[2018-05-23] MEDS ORDERED: Sodium Chloride 0.9% 1,000 ML ONE (15:47)
[2018-05-23 15:59] LABS: BASO # 0.1 K/uL (0.0-0.2); BASO % 0.9 % (0.0-2.0); EOS # 0.2 K/uL (0.0-0.7); EOS % 2.8 % (0.0-4.0); HEMOGLOBIN 15.1 g/dL (12.0-18.0); LYMPH # 1.1 K/uL (1.0-4.3); LYMPH % 16.2 % (20.0-40.0); MEAN CELL VOLUME 93.3 fL (80.0-94.0); MEAN CORPUSCULAR HEMOGLOBIN 31.5 pg (27.0-31.0); MEAN CORPUSCULAR HGB CONC 33.8 g/dL (33.0-37.0); MEAN PLATELET VOLUME 7.5 fL (7.2-11.7); MONO # 0.8 K/uL (0.0-0.8); MONO % 12.1 % (0.0-10.0); NEUT # 4.6 K/uL (1.8-7.0); RBC 4.79 Mil/uL (4.40-5.90); RED CELL DISTRIBUTION WIDTH 14.1 % (11.5-14.5); WHITE BLOOD COUNT 6.7 K/uL (4.8-10.8)
[2018-05-23 16:07] LABS: PROTHROMBIN TIME 11.1 SECONDS (9.7-12.2)
[2018-05-23 16:23] LABS: ALB/GLOB RATIO 1.2 (1.0-2.1); ALBUMIN 4.8 g/dL (3.5-5.0); ALT/SGPT 85 U/L (21-72); AST/SGOT 114 U/L (17-59); BLOOD UREA NITROGEN 8 mg/dL (9-20); GFR AFRICAN-AMERICAN > 60; GFR NON-AFRICAN AMERICAN > 60; LIPASE 243 U/L (23-300)
[2018-05-23 16:40] VITALS: BP 124/88; PULSE 88; TEMP 98.4
[2018-05-23 20:00] VITALS: O2SAT 97
== END 2018-05-23 16:40 | disposition home or self-care (01) ==
LOC: C.ER 14:47
DX: R10.13 Epigastric pain (principal)
CPT/HCPCS: 80053; 83690; 85025; 85610; 85730; 96361; 96374; 99284; J2405; J7030

== ENCOUNTER 2018-07-02 17:58 | Inpatient (IN) | payer OTHER ==
[2018-07-02 17:58] VITALS: BMI 23.4
[2018-07-02 19:04] LABS: BASO # 0.1 K/uL (0.0-0.2); BASO % 1.1 % (0.0-2.0); EOS # 0.3 K/uL (0.0-0.7); EOS % 4.1 % (0.0-4.0); HEMOGLOBIN 15.2 g/dL (12.0-18.0); LYMPH # 2.8 K/uL (1.0-4.3); LYMPH % 38.8 % (20.0-40.0); MEAN CELL VOLUME 93.4 fL (80.0-94.0); MEAN CORPUSCULAR HEMOGLOBIN 31.7 pg (27.0-31.0); MEAN CORPUSCULAR HGB CONC 33.9 g/dL (33.0-37.0); MEAN PLATELET VOLUME 7.5 fL (7.2-11.7); MONO # 0.6 K/uL (0.0-0.8); MONO % 7.6 % (0.0-10.0); NEUT # 3.5 K/uL (1.8-7.0); NEUT % 48.4 % (50.0-75.0); NRBC % 0.1 % (0.0-2.0); RBC 4.81 Mil/uL (4.40-5.90); RED CELL DISTRIBUTION WIDTH 12.9 % (11.5-14.5); WHITE BLOOD COUNT 7.3 K/uL (4.8-10.8)
[2018-07-02 19:15] LABS: SQUAMOUS EPITHIAL 1 /hpf (0-5); URINE BILIRUBIN NEGATIVE (NEGATIVE); URINE BLOOD NEGATIVE (NEGATIVE); URINE CLARITY Clear (Clear); URINE COLOR Yellow (YELLOW); URINE GLUCOSE (UA) NORMAL (Normal); URINE HYALINE CAST 0-2 /lpf (0-2); URINE LEUKOCYTE ESTERASE NEG Leu/uL (Negative); URINE PROTEIN NEGATIVE (NEGATIVE); URINE UROBILINOGEN NORMAL mg/dL (0.2-1.0)
[2018-07-02 19:49] LABS: ALB/GLOB RATIO 1.3 (1.0-2.1); ALBUMIN 5.2 g/dL (3.5-5.0); ALT/SGPT 167 U/L (21-72); AST/SGOT 233 U/L (17-59); BLOOD UREA NITROGEN 10 mg/dL (9-20); CALCIUM 10.2 mg/dl (8.6-10.4); GFR NON-AFRICAN AMERICAN > 60
[2018-07-02 19:59] LABS: BARBITURATES, UR NEGATIVE (NEGATIVE); BENZODIAZEPINES, UR NEGATIVE (NEGATIVE); OPIATES, UR NEGATIVE (NEGATIVE); PHENCYCLIDINE, UR NEGATIVE (NEGATIVE)
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
--- NOTE | 2018-07-03 05:42 | PCM.BM ---
<Gerri Lama - Last Filed: 07/03/18 05:41> Treatment Plan Problems - Problems identified on initial assessmt Alcohol Dependence Date Initiated: 07/03/18 Time Initiated: 05:41 Assessment reference: NA Status: Active Treatment assets and liabiliti Patient Assests: ADL independent Patient Liabilities: substance abuse - Milieu Protocol Maintain good personal hygiene: daily Encourage regular showers, daily Remind patient to perform daily oral care, daily Assist patient to perform ADL's Maintain personal safety: every shift Educate patient to report safety concerns to staff, every shift Monitor environment for contraband/sharps Medication safety: Monitor for expected outcome, potential side effects: every shift, Assess barriers to learning: every shift, Assess readiness for medication education: every shift <Caroline Bedolla - Last Filed: 07/04/18 11:02> Family Contact Family involvement: Famliy/SO not involved - Goals for Treatment Patient goals for treatment: Complete detox and transition to outpatient counseling. Discharge/Continuing Care - Education Needs Education Needs: Patient Medication, Patient Diagnosis/Disease Process, Patient Coping Skills, Patient Anger Management skills, Patient Placement options, Patient Community resources - Discharge Discharge Criteria: No longer exhibiting s/s of withdrawal, Reduction of target symptoms Discharge to:: Home, With Family - Treatment Team Participation Patient/Family/SO Statement: 07/04/18 11:02 "I need to go back to work..." Discussed with Family/SO: No Was Patient/Family/SO present at Treatment Team Meeting: Yes
[2018-07-03] MEDS: Multiple Vitamins Tab PO SCH (09:31)
[2018-07-03] MEDS: Pantoprazole 20 mg EC Tab PO SCH (09:31)
[2018-07-03 11:51] LABS: AMYLASE 75 U/L (30-110); LIPASE 217 U/L (23-300)
--- NOTE | 2018-07-04 08:54 | CARD ---
APPROVED REPORT Date of service: 07/02/2018 EKG Measurement Heart [id number] <Conclusion> Sinus tachycardia Left axis deviation Abnormal ECG
[2018-07-04] MEDS: Pantoprazole 20 mg EC Tab PO SCH (09:41)
[2018-07-04] MEDS: Multiple Vitamins Tab PO SCH (09:41)
--- NOTE | 2018-07-04 13:30 | PCM.PSYCH ---
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 This is, however, his first detox. He had been to medical units with alcohol-related complications and detoxed there. He has a hx of significant DTs. He was in rehab once in [facility]. He moved here 5 years ago. No drugs but chews tobacco, 3-4 gm. He started to have wdw sxs already and is slightly confused, minimally thought disordered (paused, circumstantial) He is also depressed and v anxious but not suicidal Past psych hx: Depression Medical hx: GIB, pancreatitis Family psych hx: Denied Current Medications: Active Medications Generic Name Dose Route Start Last Admin Trade Name Freq PRN Reason Stop Dose Admin Clonidine HCl 0.1 mg 07/03/18 08:38 Catapres PO Q4H PRN Symptoms of alcohol withdrawl Folic Acid 1 mg 07/03/18 10:07/04/18 09:41 Folic Acid PO 1 mg DAILY NADIA Administration Gabapentin 300 mg 07/03/18 10:07/04/18 13:29 Neurontin PO 300 mg TID NADIA Administration Ibuprofen 400 mg 07/03/18 08:41 07/03/18 20:09 Motrin Tab PO 400 mg Q6H PRN Administration Pain, moderate (4-7) Lorazepam 1 mg 07/03/18 06:47 07/03/18 06:50 Ativan PO 1 mg Q4H PRN Administration withdrawal symptoms Lorazepam 2 mg 07/03/18 10:07/04/18 09:41 Ativan PO 07/08/18 09:59 2 mg Q6H NADIA Administration Taper Multivitamins 1 tab 07/03/18 10:07/04/18 09:41 Hexavitamin PO 1 tab DAILY NADIA Administration Pantoprazole Sodium 20 mg 07/03/18 10:00 07/04/18 09:41 Protonix Ec Tab PO 20 mg DAILY NADIA Administration Thiamine HCl 100 mg 07/03/18 10:00 07/04/18 09:41 Vitamin B1 Tab PO 100 mg DAILY NADIA Administration Trazodone HCl 50 mg 07/03/18 08:38 Desyrel PO HS PRN Insomnia Past Psychiatric History - Past Psychiatric History Previous Treatment History: None Pertinent Medical Hx (Current Medical&Sleep Prob, Allergies): Allergies Allergy/AdvReac Type Severity Reaction Status Date / Time No Known Allergies Allergy Verified 07/02/18 18:10 No Known Home Med 07/02/18 Review of Systems - Neurological Neurological: Confusion (mild), Tremor - Psychiatric Psychiatric: Abnormal Sleep Pattern, Anhedonia, Anxiety, Change in Appetite, Depression, Difficulty Concentrating, Irritability. absent: Hallucinations, Homicidal Ideation, Suicidal Ideation Mental Status Examination - Personal Presentation Personal Presentation: Looks stated age - Affect Affect: Constricted - Motor Activity Motor Activity: Calm - Reliability in Providing Information Reliability in Providing Information: Good - Speech Speech: Tangential - Mood Mood: Depressed, Anxious - Formal Thought Process Formal Thought Process: Circumstantial - Cognitive Functions Orientation: Person, Place, Situation, Time Sensorium: Alert Attention/Concentration: Easily distracted Abstract Thinking: As evidence by abstract perception of proverbs Estimate of Intelligence: Average Judgement: Intact, as evidence by: Insight regarding need for hospitalization Memory: Recent intact, as evidence by: Ability to recall events of the day, Remote intact, as evidenced by: Abilit to recall sig. life events - Risk Risk: Elopement, Seizure, Withdrawal, Diminished functioning - Strength & Assets Inventory Strength & Assets Inventory: Family support, Employment history, Cooperative - Limitations Limitations: Other DSM 5 DX - DSM 5 DSM 5 Diagnosis: Alcohol withdrawal with complication r/o DT Alcohol use d/o - severe Alcohol-induced mood d/o r/o MDD Tobacco use d/o - severe - Recommended/Plan of Treatment Treatment Recommendations and Plan of Treatment: Ativan detox As needed medications Gabapentin for augmentation All risks, benefits and alternatives of medications, including no medications, discussed and the patient understood and agreed. Labs Attend groups and activities Supportive therapy and psychoeducation DE for abstinence CBT for relapse prevention Encourage MAT Refer to rehab or IOP Attend self-help groups as well DE for smoking cessation and patch if needed 34 min Projected ELOS: 6 days Prognosis: fair to good - Smoking Cessation Smoking Cessation Initiated: Yes
--- NOTE | 2018-07-04 13:30 | PCM.PYCHPN ---
Psychiatric Progress Note - Psychiatric Progress Note Patient seen today, length of contact: 19 min Patient Chief Complaint: "OK" Problems Identified/Issues Discussed: The pt is seen, chart reviewed, case discussed with staff. The pt is compliant with medications and reports no side-effects. Symptoms are improving but needs more time to stabilize. Still in and out of full consciousness, disoriented at times, circumstantial Pt cannot attend groups and activities due to severity of his withdrawal and confusion Support given, psycho-education provided. Medication Change: Yes (detox changes daily) Medical Record Reviewed: Yes Mental Status Examination - Cognitive Function Orientation: Person, Place Memory: Impaired Attention: Poor Concentration: Poor Association: Loose Fund of Knowledge: Poor - Mood Mood: Anxious - Affect Affect: Blunted - Speech Speech: Soft - Formal Thought Process Formal Thought Process: Loosening of associations - Suicidal Ideation Suicidal Ideation: No - Homicidal Ideation Homicidal Ideation: No Goal/Treatment Plan - Goal/Treatment Plan Need for Continued Stay: Discharge may exacerbated symptoms, Severe functional impairment Progress Toward Problem(s) and Goals/Treatment Plan: Taper with ativan due to high LFTs Gabapentin for augmentation Close observation As needed medications All risks, benefits and alternatives of the meds discussed, and the pt agreed and understood. Attend groups and activities when more lucid Supportive therapy and psychoeducation UT for abstinence Encourage MAT, when liver is better Check Ammonia level and others b/c of severe wdw Refer to rehab or IOP, and self-help groups Smoking cessation with UT Nicotine patch if needed Estimated Date of D/C: 07/08/18
--- NOTE | 2018-07-04 17:29 | RAD ---
Date of service: 07/04/2018 PROCEDURE: Radiographs of the Chest and Left Ribs. HISTORY: He has pain in left ribs. Alcoholism. COMPARISON: Chest radiograph dated 07/09/2017. TECHNIQUE: Frontal radiograph of the chest and multiple oblique radiographs of the left ribs were obtained. FINDINGS: LEFT RIBS: No fracture or focal lesion visualized. LUNGS: Clear. PLEURA: No pneumothorax or pleural fluid. CARDIOVASCULAR: Normal sized heart. No pulmonary vascular congestion. OTHER FINDINGS: None. IMPRESSION: Unremarkable radiographs of the chest and left ribs. No left rib fracture.
[2018-07-05 07:57] LABS: ALB/GLOB RATIO 1.3 (1.0-2.1); ALBUMIN 5.1 g/dL (3.5-5.0); ALT/SGPT 110 U/L (21-72); AST/SGOT 136 U/L (17-59); BLOOD UREA NITROGEN 7 mg/dL (9-20); GFR NON-AFRICAN AMERICAN > 60
[2018-07-05] MEDS: Multiple Vitamins Tab PO SCH (09:07)
[2018-07-05] MEDS: Pantoprazole 40 mg EC Tab PO SCH (09:07)
--- NOTE | 2018-07-05 14:22 | PCM.PYCHPN ---
Psychiatric Progress Note - Psychiatric Progress Note Patient seen today, length of contact: 19 min Patient Chief Complaint: "OK" Problems Identified/Issues Discussed: The pt is seen, chart reviewed, case discussed with staff. Support and psychoeducation given, CBT and OR used briefly No new symptoms reported, improving slowly and needs more time He is getting confused - how to deal with that discussed No SEs from medications, risks discussed. After care discussed Medication Change: Yes (detox changes daily) Medical Record Reviewed: Yes Mental Status Examination - Cognitive Function Orientation: Person, Place Memory: Impaired Attention: Poor Concentration: Poor Association: Loose Fund of Knowledge: Poor - Mood Mood: Anxious - Affect Affect: Blunted - Speech Speech: Soft - Formal Thought Process Formal Thought Process: Loosening of associations - Suicidal Ideation Suicidal Ideation: No - Homicidal Ideation Homicidal Ideation: No Goal/Treatment Plan - Goal/Treatment Plan Need for Continued Stay: Discharge may exacerbated symptoms, Severe functional impairment Progress Toward Problem(s) and Goals/Treatment Plan: Taper with ativan due to high LFTs Gabapentin for augmentation Close observation As needed medications All risks, benefits and alternatives of the meds discussed, and the pt agreed and understood. Attend groups and activities when more lucid Supportive therapy and psychoeducation OR for abstinence Encourage MAT, when liver is better Check Ammonia level and others b/c of severe wdw Refer to rehab or IOP, and self-help groups Smoking cessation with OR Nicotine patch if needed Estimated Date of D/C: 07/08/18
--- NOTE | 2018-07-05 14:37 | CARD ---
APPROVED REPORT Date of service: 07/03/2018 EKG Measurement Heart [id number] <Conclusion> Normal sinus rhythm Left axis deviation Otherwise normal
[2018-07-06] MEDS: Multiple Vitamins Tab PO SCH (10:14)
[2018-07-06] MEDS: Pantoprazole 40 mg EC Tab PO SCH (10:14)
[2018-07-07] MEDS: Pantoprazole 40 mg EC Tab PO SCH (10:45)
[2018-07-07] MEDS: Multiple Vitamins Tab PO SCH (10:45)
--- NOTE | 2018-07-07 15:28 | PCM.PYCHPN ---
Psychiatric Progress Note - Psychiatric Progress Note Patient seen today, length of contact: 25 min Patient Chief Complaint: "I want to leave" Problems Identified/Issues Discussed: The pt is seen, chart reviewed, case discussed with staff. He is confused, thought disordered, disoriented However vitals and sxs are imprving slowly He wanted to leave but his son was able to convince him to stay when our counselor made a phone call together Pt is at risk to get lost and go into deeper Delirium Tremens if he leaves treatment now Support given Medication Change: Yes (detox changes daily) Medical Record Reviewed: Yes Mental Status Examination - Cognitive Function Orientation: Person, Place Memory: Impaired Attention: Poor Concentration: Poor Association: Loose Fund of Knowledge: Poor - Mood Mood: Anxious - Affect Affect: Blunted - Speech Speech: Soft - Formal Thought Process Formal Thought Process: Loosening of associations - Suicidal Ideation Suicidal Ideation: No - Homicidal Ideation Homicidal Ideation: No Goal/Treatment Plan - Goal/Treatment Plan Need for Continued Stay: Discharge may exacerbated symptoms, Severe functional impairment Progress Toward Problem(s) and Goals/Treatment Plan: Taper with ativan due to high LFTs Gabapentin for augmentation Close observation As needed medications All risks, benefits and alternatives of the meds discussed, and the pt agreed and understood. Attend groups and activities when more lucid Supportive therapy and psychoeducation CT for abstinence Encourage MAT, when liver is better Check Ammonia level and others b/c of severe wdw Refer to rehab or IOP, and self-help groups Smoking cessation with CT Nicotine patch if needed Estimated Date of D/C: 07/08/18
--- NOTE | 2018-07-07 15:32 | PCM.PYCHPN ---
Psychiatric Progress Note - Psychiatric Progress Note Patient seen today, length of contact: 20 min Patient Chief Complaint: "I saw some people and then they disappeared" Problems Identified/Issues Discussed: The pt is seen, chart reviewed, case discussed with staff. He reports AV hallucinations - meds given He is less confused but still disoriented and thought disordered His judgment is not there yet Spoke to his son and he convinced him to stay and complete his treatment Support given Medication Change: Yes (detox changes daily) Medical Record Reviewed: Yes Mental Status Examination - Cognitive Function Orientation: Person, Place Memory: Impaired Attention: Poor Concentration: Poor Association: Loose Fund of Knowledge: Poor - Mood Mood: Anxious - Affect Affect: Blunted - Speech Speech: Soft - Formal Thought Process Formal Thought Process: Loosening of associations - Suicidal Ideation Suicidal Ideation: No - Homicidal Ideation Homicidal Ideation: No Goal/Treatment Plan - Goal/Treatment Plan Need for Continued Stay: Discharge may exacerbated symptoms, Severe functional impairment Progress Toward Problem(s) and Goals/Treatment Plan: Taper with ativan due to high LFTs Gabapentin for augmentation Close observation As needed medications All risks, benefits and alternatives of the meds discussed, and the pt agreed and understood. Attend groups and activities when more lucid Supportive therapy and psychoeducation DC for abstinence Encourage MAT, when liver is better Check Ammonia level and others b/c of severe wdw Refer to rehab or IOP, and self-help groups Smoking cessation with DC Nicotine patch if needed Estimated Date of D/C: 07/08/18
[2018-07-07 20:35] VITALS: O2SAT 98
[2018-07-08 06:23] VITALS: RESP 18
[2018-07-08] MEDS: Multiple Vitamins Tab PO SCH (09:06)
[2018-07-08] MEDS: Pantoprazole 40 mg EC Tab PO SCH (09:06)
[2018-07-08 09:32] VITALS: BP 125/88; PULSE 83; TEMP 97.7
--- NOTE | 2018-07-08 13:05 | PCM.PYCHDC ---
Mental Status Examination - Mental Status Examination Orientation: Person, Place, Situation, Time Memory: Intact Mood: Neutral Affect: Other (Appropriate) Speech: Appropriate Attention: WNL Concentration: WNL Association: WNL Fund of Knowledge: WNL Formal Thought Process: No Impairment Description of patient's judgement and insight: Good Psychotic Thoughts and Behaviors: None Suicidal Ideation: No Current Homicidal Ideation?: No Discharge Summary - Discharge Note Reason for Hospitalization: Alcohol use disorder severe Laboratory Data: Reviewed Consultations:: List each consultation separately and include: 1. Reason for request. 2. Findings. 3. Follow-up Summary of Hospital Course include:: 1. Description of specific treatment plan utilized for patients during their course of treatmen. 2. Summarize the time- course for resolution of acute symptoms and/or regressed behaviors. 3. Describe issues identified and worked on during hospitalization. 4. Describe medication utilized. 5. Describe medical problems identified and treated. 6. 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 This is, however, his first detox. He had been to medical units with alcohol-related complications and detoxed there. He has a hx of significant DTs. He was in rehab once in [facility]. He moved here 5 years ago. No drugs but chews tobacco, 3-4 gm. He started to have wdw sxs already and is slightly confused, minimally thought disordered (paused, circumstantial) He is also depressed and v anxious but not suicidal Past psych hx: Depression During his stay in the hospital patient was started on Ativan taper for alcohol withdrawal symptoms. Abnormal liver function test. Patient was started on other when necessary medications. We treatment and attending groups patient started feeling better. Today patient was stable and ready for discharge. At the time of evaluation and discharge, patient was awake alert oriented 3, had no delusions, no auditory or visual hallucinations, no suicidal ideations or homicidal ideations. Patient was discharged in a stable condition. Patient will go to [facility] for follow-up care after discharge from the hospital. - Final Diagnosis (DSM 5) Condition upon Discharge: STABLE Disposition: HOME/ ROUTINE Follow-up Treatment Plan: At [facility] Prescriptions/Medication Reconciliation: Gabapentin [Neurontin] 400 mg PO TID #90 cap Pantoprazole [Protonix EC Tab] 40 mg PO DAILY #30 ect traZODone [Desyrel] 100 mg PO HS PRN #30 tab PRN Reason: Insomnia - Smoking Cessation Smoking Cessation Medication prescribed: Yes - Antipsychotic Medications Pt discharged on 2 or more routine antipsychotic medications: No
== END 2018-07-08 09:30 | disposition home or self-care (01) | DRG 751 ==
LOC: C.ER 17:58 → C.7D 07-03 04:21
PROVIDERS: ADMIT Psychiatry & Neurology Psychiatry; ATTEND Psychiatry & Neurology Psychiatry
PROC: HZ2ZZZZ Detoxification Services for Substance Abuse Treatment (ICD-10-PCS; principal; 2018-07-03)
PROC: HZ52ZZZ Individual Psychotherapy for Substance Abuse Treatment, Cognitive-Behavioral (ICD-10-PCS; 2018-07-03)
PROC: HZ59ZZZ Individual Psychotherapy for Substance Abuse Treatment, Supportive (ICD-10-PCS; 2018-07-03)
PROC: HZ56ZZZ Individual Psychotherapy for Substance Abuse Treatment, Psychoeducation (ICD-10-PCS; 2018-07-03)
PROC: HZ42ZZZ Group Counseling for Substance Abuse Treatment, Cognitive-Behavioral (ICD-10-PCS; 2018-07-03)
PROC: HZ46ZZZ Group Counseling for Substance Abuse Treatment, Psychoeducation (ICD-10-PCS; 2018-07-03)
PROC: GZHZZZZ Group Psychotherapy (ICD-10-PCS; 2018-07-03)
PROC: GZ58ZZZ Individual Psychotherapy, Cognitive-Behavioral (ICD-10-PCS; 2018-07-03)
PROC: GZ56ZZZ Individual Psychotherapy, Supportive (ICD-10-PCS; 2018-07-03)
DX: F10.220 Alcohol dependence with intoxication, uncomplicated (principal); Y90.8 Blood alcohol level of 240 mg/100 ml or more; F10.24 Alcohol dependence with alcohol-induced mood disorder; F17.200 Nicotine dependence, unspecified, uncomplicated; F32.9 Major depressive disorder, single episode, unspecified; R94.5 Abnormal results of liver function studies; G47.00 Insomnia, unspecified

== ENCOUNTER 2018-09-20 13:40 | Emergency (ER) | payer OTHER ==
[2018-09-20 13:40] VITALS: BMI 23.4
[2018-09-20] MEDS ORDERED: Naproxen 550 mg Tab PO STA (14:58)
--- NOTE | 2018-09-20 15:02 | C.PDOC ---
History Of Present Illness 53 year old male presents to the ED for evaluation of left hand pain which began after he sustained a fall two days ago. Patient states he fell and tried to brace the impact with his left hand. Patient took Tylenol and Aleve without relief. He denies head injury, LOC, sensory changes. Time Seen by Provider: 09/20/18 14:01 Chief Complaint (Nursing): Finger,Hand,&Wrist History Per: Patient History/Exam Limitations: no limitations Onset/Duration Of Symptoms: Days (2) Current Symptoms Are (Timing): Still Present Quality: "Pain" Additional History Per: Patient Past Medical History Reviewed: Historical Data, Nursing Documentation, Vital Signs Vital Signs: Last Vital Signs Temp 98 F 09/20/18 13:53 Pulse 90 09/20/18 13:53 Resp 18 09/20/18 13:53 BP 124/88 09/20/18 13:53 Pulse Ox 95 09/20/18 13:53 - Medical History PMH: No Chronic Diseases Denies: Diabetes, Hepatitis, HIV, HTN, Chronic Kidney Disease, Seizures, Sexually Transmitted Disease Surgical History: No Surg Hx - [facility] Procedures DETOXIFICATION SERVICES FOR SUBSTANCE ABUSE TREATMENT (07/03/18) GROUP MAINTENANCE SHOP MANAGER FOR SUBSTANCE ABUSE TREATMENT, PSYCHOEDUCATION (07/03/18) GROUP MAINTENANCE SHOP MANAGER FOR SUBSTANCE ABUSE, COGNITIVE BEHAVIORAL (07/03/18) GROUP PSYCHOTHERAPY (07/03/18) INDIV PSYCHOTHERAPY FOR SUBSTANCE ABUSE TREATMENT, SUPPORT (07/03/18) INDIV PSYCHOTHERAPY FOR SUBSTANCE ABUSE, COGNITIV BEHAVIORAL (07/03/18) INDIV PSYCHOTHERAPY FOR SUBSTANCE ABUSE, PSYCHOEDUCATION (07/03/18) INDIVIDUAL PSYCHOTHERAPY, COGNITIVE-BEHAVIORAL (07/03/18) INDIVIDUAL PSYCHOTHERAPY, SUPPORTIVE (07/03/18) Family History: States: Unknown Family Hx - Social History Hx Alcohol Use: Yes Hx Substance Use: Yes - Immunization History Hx Tetanus Toxoid Vaccination: No Hx Influenza Vaccination: No Hx Pneumococcal Vaccination: No Review Of Systems Musculoskeletal: Positive for: Hand Pain (left) Physical Exam - Physical Exam Appears: Non-toxic, No Acute Distress Skin: Normal Color, Warm, Dry Head: Atraumatic, Normacephalic Eye(s): bilateral: Normal Inspection Extremity: Tenderness (left hand and wrist ), Capillary Refill (less than 2 seconds ), No Deformity Pulses: Left Radial: Normal, Right Radial: Normal Neurological/Psych: Oriented x3, Normal Speech, Normal Cognition ED Course And Treatment O2 Sat by Pulse Oximetry: 95 (on RA) Pulse Ox Interpretation: Normal - Other Rad left wrist XR X-Ray: Viewed By Me, Read By Radiologist Interpretation: PROCEDURE: Left hand radiographs. Left wrist radiographs. HISTORY: LEFT HAND PAIN AFTER FALL. COMPARISON: None available. FINDINGS: BONES: No acute displaced fracture. JOINTS: No dislocation. SOFT TISSUES: Soft tissue swelling. No evidence of radiopaque foreign body. OTHER FINDINGS: None. IMPRESSION: Soft tissue swelling. No acute displaced fracture, dislocation, or significant joint effusion identified. If high clinical index of suspicion, cross-sectional imaging may be considered. Otherwise if symptoms persist, or if there is continued clinical concern, x-ray follow-up in 7-10 days should be considered. left hand XR X-Ray: Viewed By Me, Read By Radiologist Interpretation: PROCEDURE: Left hand radiographs. Left wrist radiographs. HISTORY: LEFT HAND PAIN AFTER FALL. COMPARISON: None available. FINDINGS: BONES: No acute displaced fracture. JOINTS: No dislocation. SOFT TISSUES: Soft tissue swelling. No evidence of radiopaque foreign body. OTHER FINDINGS: None. IMPRESSION: Soft tissue swelling. No acute displaced fracture, dislocation, or significant joint effusion identified. If high clinical index of suspicion, cross-sectional imaging may be considered. Otherwise if symptoms persist, or if there is continued clinical concern, x-ray follow-up in 7-10 days should be considered. Progress Note: Left hand XR and left wrist XR ordered and reviewed. KRISTEN bandage applied. Naproxen PO given. Disposition Counseled Patient/Family Regarding: Studies Performed, Diagnosis, Need For Followup, Rx Given - Disposition Referrals: Jason May MD [Staff Provider] - Roque Corbin MD [Staff Provider] - Disposition: HOME/ ROUTINE Disposition Time: 15:00 Condition: STABLE Additional Instructions: FOLLOW UP WITH HAND SURGEON WITHIN 1 WEEK IF PAIN PERSISTS RETURN TO ER IF SYMPTOMS WORSEN USE PAIN MEDICATION NEEDED Prescriptions: Naproxen 375 mg PO BID PRN #20 tablet PRN Reason: pain Instructions: Hand Sprain (ED) Forms: [employer] (Hong Konger) Print Language: MAORI - Clinical Impression Clinical Impression: Sprain of left hand - Scribe Statement The provider has reviewed the documentation as recorded by the Scribe (Delmis Griffith) Provider Attestation: All medical record entries made by the Scribe were at my direction and personally dictated by me. I have reviewed the chart and agree that the record accurately reflects my personal performance of the history, physical exam, medical decision making, and the department course for this patient. I have also personally directed, reviewed, and agree with the discharge instructions and disposition.
[2018-09-20] MEDS ORDERED: Naproxen 550 mg Tab PO ONE (15:12)
[2018-09-20 15:16] VITALS: BP 117/79; PULSE 85; RESP 20; TEMP 98.1
--- NOTE | 2018-09-20 16:09 | RAD ---
PROCEDURE: Left hand radiographs Left wrist radiographs HISTORY: LEFT HAND PAIN AFTER FALL COMPARISON: None available. FINDINGS: BONES: No acute displaced fracture. JOINTS: No dislocation. SOFT TISSUES: Soft tissue swelling. No evidence of radiopaque foreign body. OTHER FINDINGS: None. IMPRESSION: Soft tissue swelling. No acute displaced fracture, dislocation, or significant joint effusion identified. If high clinical index of suspicion, cross-sectional imaging may be considered. Otherwise if symptoms persist, or if there is continued clinical concern, x-ray follow-up in 7-10 days should be considered.
[2018-09-21 21:45] VITALS: O2SAT 95
== END 2018-09-20 15:23 | disposition home or self-care (01) ==
LOC: C.ER 13:40
DX: S63.92XA Sprain of unspecified part of left wrist and hand, initial encounter (principal); W19.XXXA Unspecified fall, initial encounter; Y92.9 Unspecified place or not applicable